=== PATIENT | female | born 1950 | race Caucasian/White ===

== ENCOUNTER 2017-06-22 12:02 | Emergency (ER) | payer MEDICARE, BC ==
[~2017-06-22] VITALS: Ht 167.6 cm; Wt 115.7 kg
[~2017-06-22 12:02] MED LIST: APIDRA100 UNIT/2 SUB-Q; ASPIRIN EC81 MG PO; B-121000 MC2 PO; CEFPODOXIME PR200 MG PO; CITALOPRAM HBR40 MG PO; DETROL LA2 MG PO; DETROL LA4 MG PO; DOXYCYCLINE HY100 MG PO; ECHINACEA500 MG PO; FAMOTIDINE40 MG PO; GABAPENTIN300 MG PO; HYDROCORTISO453.6 GM TOP; KEFLEX500 MG PO; LASIX20 MG PO; LEVEMIR100 UNIT/1 SUB-Q; LEVOTHROID137 MCG PO; LEVOTHROID150 MCG PO; LEVOTHYROXINE137 MCG PO; LIPITOR40 MG PO; LISINOPRIL10 MG PO; LISINOPRIL20 MG PO; MAGNESIUM400 MG PO; MYRBETRIQ50 MG PO; NORCO 5-325 TA1 EACH PO; NOVOLOG100 UNITS/ SUB-Q; OMEPRAZOLE40 MG PO; OXYTROL1 EACH TD; PEPCID40 MG PO; POTASSIUM CHLO10 ME1 PO; PREDNISONE20 MG PO; PRILOSEC40 MG PO; PROAIR HFA8.5 GM INH; PROMETHAZINE-COD5 ML PO; REGLAN10 MG PO; REGLAN5 MG PO; ROBITUSSIN NIG118 ML PO; SERTRALINE HCL100 MG PO; TESSALON PERLE100 MG PO; TOPROL XL100 MG PO; TRAMADOL-ACETA1 EACH PO; VANICREAM453 GM TOP; VICODIN 5-3001 EACH PO; VITAMIN C500 M1 PO; ZITHROMAX250 MG PO; ZOFRAN ODT8 MG PO
[2017-06-22] MEDS ORDERED: OMEPRAZOLE40 MG PO (12:18)
[2017-06-22] MEDS ORDERED: ARYMO ER15 MG PO (15:11)
== END 2017-06-22 15:20 | disposition home or self-care (01) ==
LOC: ED 12:02
DX: S70.02XA Contusion of left hip, initial encounter (principal); S80.212A Abrasion, left knee, initial encounter; M54.6 Pain in thoracic spine; M54.5 Low back pain; E11.9 Type 2 diabetes mellitus without complications; E03.9 Hypothyroidism, unspecified; I10 Essential (primary) hypertension; Z90.710 Acquired absence of both cervix and uterus; Z90.49 Acquired absence of other specified parts of digestive tract; Z88.2 Allergy status to sulfonamides; Z88.5 Allergy status to narcotic agent; Z79.4 Long term (current) use of insulin; Z79.899 Other long term (current) drug therapy; W01.0XXA Fall on same level from slipping, tripping and stumbling without subsequent striking against object, initial encounter
CPT/HCPCS: 72070; 72100; 73502; 96372; 99283; J2270

== ENCOUNTER 2017-08-06 08:39 | Inpatient (IN) | payer MEDICARE, BC ==
[~2017-08-06] VITALS: Ht 167.6 cm; Wt 111.1 kg
--- OUTSIDE RECORDS SUMMARY | ~2017-08-06 | XMS | Clinical Summary ---
Demographics + + + | Address | [address] [place] [address] | | | [place] [address] | + + + | Home Phone | | + + + | Preferred Language | Unknown | + + + | Marital Status | | + + + | Pentecostalism Affiliation | Unknown | + + + [...] [address] | | [place] | [place] [address] | +------+ + + + + + Care Team Providers + +------+ + | Care Parking Ramp Attendant Name | Role | Phone | + +------+ + PP | Unavailable | + +------+ + Source Comments KAR[facility]IK is [facility] both [facility] and [facility] InPatient.[facility] Allergies + + + + + + [...]
[~2017-08-06 08:39] MED LIST changes: +ARYMO ER15 MG PO
--- OUTSIDE RECORDS SUMMARY | 2017-08-06 10:06 | XMS | Clinical Summary ---
Demographics + + + | Address | [address] [place] [address] | | | [place] [address] | + + + | Home Phone | | + + + | Preferred Language | Unknown | + + + | Marital Status | | + + + | Hindu Affiliation | Unknown | + + + | Race | White | + + + | Ethnic Group | Not or | + + + Author + + + | Author | [facility] | + + + | Organization | [facility] | + + + | Address | Unknown | + + + | Phone | Unavailable | + + + Support +------+ + + + + + | Name | Relationship | Address | Phone | +------+ + + + + + ECON | [address] | | [place] | [place] [address] | +------+ + + + + + Care Team Providers + +------+ + | Care Oven Press Tender Name | Role | Phone | + +------+ + PP | Unavailable | + +------+ + Source Comments KARTHIK is fully live on both [facility] and [facility] InPatient.[facility] Allergies + + + + + + | Active Allergy | Reactions | Severity | Noted | Comments | | | | | Date | | + + + + + + | Codeine | | | 10/18/19 | | | | | | 00 | | + + + + + + | Sulfa (Sulfonamide | | | 10/18/19 | | | Antibiotics) | | | 00 | | + + + + + + Current Medications Not on file Active Problems Not on file Social History + +-------+ +--------+------+ | Tobacco Use | Types | Packs/Day | Years | Date | | | | | Used | | + +-------+ +--------+------+ | Never Assessed | | | | | + +-------+ +--------+------+ + + + | Sex Assigned at | Date Recorded | | | | + + + | Not on file | | + + + Plan of Treatment + + + + + | Health Maintenance | Due Date | Last Done | Comments | + + + + + | INFLUENZA VACCINE | | | | | (FLU SHOT) | 7 | | | + + + + + Results Not on filefrom Last 3 Months"
--- OUTSIDE RECORDS SUMMARY | 2017-08-06 10:06 | XMS | Clinical Summary ---
Demographics + + + | Address | [address] [place] [address] | | | [place] [address] | + + + | Home Phone | | + + + | Preferred Language | Unknown | + + + | Marital Status | | + + + | Jew Affiliation | Unknown | + + + [...] [address] | | [place] | [place] [address] | +------+ + + + + + Care Team Providers + +------+ + | Care Rn Medicare Name | Role | Phone | + +------+ + PP | Unavailable | + +------+ + Source Comments K[facility]IK is [facility] and [facility] In[facility] Allergies + + + + + + [...]
--- NOTE | 2017-08-06 14:25 | NUR ---
PT ASSESSMENT COMPLETE WHILE STILL IN ED. PT WILL BE MOVING TO MEDICAL FLOOR. ADMISSION COMPLETE.
--- NOTE | 2017-08-06 15:48 | NUR ---
REPORT TO MUNDO RICHARDSON
--- NOTE | 2017-08-06 16:30 | NUR ---
EXPLAINED SLIDING SCALE TO PATIENT, VERBALIZED UNDERSTANDING WITH CARB COUNT. UP TO BATHROM 1PERSON STBY ASSIST. STATES " I JUST DON'T FEEL WELL."
--- NOTE | 2017-08-06 18:00 | NUR ---
PATIENT DID NOT EAT ENOUGH CARBS FOR INSULIN. PATIENT STATES " I AM JUST NOT FEELING THAT HUNGRY TONIGHT". PATIENT USING IS, DOING WELL. IV FLUIDS INFUSING. DROPLET PERCAUTIONS INITIATED.
--- NOTE | 2017-08-06 19:45 | NUR ---
RECIEVED REPORT FROM DAY SHIFT NURSE. PATIENT RESTING IN BED. IVF INFUSING W/O DIFFICULTY. PATIENT DENIES NEEDS, CALL LIGHT IN REACH.
--- NOTE | 2017-08-06 20:46 | NUR ---
ASSISTED PATIENT TO BATHROOM WITH FWW. PATIENT VOIDED CLEAR YELLOW URINE. BACK TO BED. PATIENTS O2 WENT FROM 94-95% AT REST, TO 86-88% AFTER AMBULATING TO BATHROOM. STATES SHE DID GET MILDLY SOB. CONT PULSE OX IN PLACE. 2L O2 VIA NC IN PLACE. PATIENT ENCOURAGED TO USE INCENTIVE SPIROMETER, SHE WAS ABLE TO REACH 750ML. REFILLED WATER PITCHER. LUNG SOUNDS DIMINISHED, OCCASIONAL PRODUCTIVE COUGH EXPELLING THICK YELLOW SPUTUM. SPUTUM SAMPLE SENT TO LAB. BS ACTIVE. NO EDEMA, PALPABLE PEDAL PULSES. PATIENT HAS H/O NEUROPATHY IN BLE. DENIES PAIN. IVF INFUSING W/O DIFFICULTY. SCRATCH NOTED ON LLE FROM FALL BEFORE SHE WAS ADMITTED. PATIENT DENIES FURTHER NEEDS. CALL LIGHT IN REACH.
--- NOTE | 2017-08-06 22:22 | NUR ---
PATIENT UP TO BATHROOM WITH ASSIST. BACK TO BED. REFILLED WATER PITCHER. OBTAINED BLOOD SUGAR, ADMINISTERED INSULIN PER SEP. WILL NOTIFY CHARGE NURSE OF BLOOD SUGAR. CALL LIGHT IN REACH.
--- NOTE | 2017-08-06 22:30 | NUR ---
NOTIFIED OF BLOOD SUGAR. OBTAINED ORDER TO CHECK BLOOD SUGAR AT 0200.
--- NOTE | 2017-08-07 00:40 | NUR ---
ASSISTED PATIENT TO BATHROOM. VOIDED, BACK TO BED. IVF INFUSING W/O DIFFICULTY. PATIENT DENIES FURTHER NEEDS. CALL LIGHT IN REACH.
--- NOTE | 2017-08-07 00:57 | NUR ---
VITALS AND I&OS DONE AND CHARTED. HELPED PT TO THE BATHROOM AND BACK TO BED WITH HER WALKER. BEDSIDE TABLE AND CALL LIGHT WITHIN REACH.
--- NOTE | 2017-08-07 01:37 | NUR ---
CHANGED IVF BAG. TOILETING OFFERED. PATIENT DENIES NEEDS. CALL LIGHT IN REACH.
--- NOTE | 2017-08-07 02:45 | NUR ---
PATIENT SLEEPING. OBTAINED BLOOD SUGAR. ADMINISTERED CORRECT DOSAGE OF SLIDING SCALE INSULIN. LUNGS DIMINISHED. BREATHING IS EVEN AND UNLABORED. BS ACTIVE. CALL LIGHT IN REACH.
--- NOTE | 2017-08-07 04:20 | NUR ---
HELPED PT TO THE BATHROOM AND BACK TO BED WITH HER FWW. CHARTED HER URINE OUTPUT. SHE NEEDED NOTHING ELSE AT THIS TIME. BEDSIDE TABLE AND CALL LIGHT WITHIN REACH.
--- NOTE | 2017-08-07 06:12 | NUR ---
ASSISTED PATIENT TO BATHROOM. PATIENT VOIDED, BACK TO BED. DENIES NEEDS AT THIS TIME. CALL LIGHT IN REACH.
--- NOTE | 2017-08-07 07:47 | NUR ---
RECIEVED BEDSIDE REPORT FROM DEBRA VÁSQUEZ. PT AWAKE AND ALERT IN BED. ASSISTED PT TO BATHROOM, VOIDED 400ML. O2 MAINTAINED AT 92%. FLUIDS RUNNING. ALL BELONGINGS IN REACH.
--- NOTE | 2017-08-07 10:38 | NUR ---
GOT LUNCH ORDER FOR PT. SHE WAS SLEEPING WELL, WOKE UP TO GIVE LUNCH ORDER. DENIED PAIN, NO NEED TO VOID AT THIS TIME, PERSONAL BELONGINGS IN REACH.
--- NOTE | 2017-08-07 11:25 | NUR ---
PT UP TO THE CHAIR FOR LUNCH.
--- NOTE | 2017-08-07 11:38 | NUR ---
PT TO THE CHAIR. AND TOOK TO THE BR. FRESH ICE WATER. LINEN CHANGE.
--- NOTE | 2017-08-07 12:43 | NUR ---
ASSISTED PT BACK TO BED FROM BATHROOM. PT HAD BEEN IN CHAIR FOR LUNCH. VOIDING WELL, HAD ONE SMALL, HARD BM. O2 ON, 88% WHEN REATTACHED TO PULSE OX. IV RUNNING. PT COMFORTABLE, PERSONAL BELONGINGS AND CALL LIGHT IN REACH.
--- NOTE | 2017-08-07 15:15 | NUR ---
PT REFUSED SUPPOSITORY. STATED SHE HAD A LARGE BM YESTERDAY.
--- NOTE | 2017-08-07 17:20 | NUR ---
UPON ACCU CHECK FOR DINNER, PT BLOOD SUGAR WAS 66. RN IMMEDIATELY GAVE 8OZ JUICE, WHICH PT DRANK WITH NO ISSUES. PT STATED SHE "DIDN'T FEEL GOOD". WHEN ASKED, PT STATED SHE HAD A HEADACHE. PT WAS NOT CLAMMY, NOT SWEATY, BUT DID LOOK LIKE SHE WAS NOT FEELING WELL. PULSE 84, O2 93%, BP 148/82. PT STATED NO PAIN. DINNER WAS DELIVERED AND SET UP FOR PT. PT ATE CHICKEN, MASHED POTATOES, AND GRAVY. WILL RECHECK BLOOD SUGAR.
--- NOTE | 2017-08-07 17:27 | NUR ---
RECHECKED BLOOD SUGAR AFTER JUICE AND PART OF MEAL, CBG 88.
--- NOTE | 2017-08-07 17:31 | NUR ---
CALLED DR HAY REGARDING PT BLOOD SUGAR. DR HAY GAVE TELEPHONE ORDERS TO CONTINUE INSULIN AT 5 UNITS FOR EVERY 20 GM OF CARBS AND RECHECK BLOOD SUGAR AT BEDTIME. ORDER READ BACK AND VERIFIED.
--- NOTE | 2017-08-07 18:01 | NUR ---
GARY PT TO THE BR. FRESH ICE WATER.
--- NOTE | 2017-08-07 18:14 | NUR ---
PT HAD LOW BLOOD SUGAR (66) AT DINNER. AWARE. CONTINUE CARB COVERAGE AND RECHECK AT BEDTIME. PT STATED SHE DID NOT FEEL WELL, BUT WAS OTHERWISE ASYMPTOMATIC. FLUIDS DC. IV SALINE LOCKED. O2 WEANED TO 1L VIA NASAL CANULA. NO BM, ONE HARD STOOL. BM YESTERDAY.
--- NOTE | 2017-08-07 20:20 | NUR ---
PT IS COMPLAINING OF A CONTINUOUS COUGH, HACKING COUGH. PT REQUESTING "SOMETHING FOR MY COUGH, I CANT HANDLE THIS ANYMORE." CALLED DR HAY AND NOTIFIED HIM OF PT'S REQUEST, HE WILL PUT IN ORDERS.
--- NOTE | 2017-08-07 21:10 | NUR ---
PT UP TO BATHROOM TO VOID, STANDBY ASSIST WITH FWW, TOLERATED WELL. PT BACK IN BED. ALERT AND ORIENTED X4, PLEASENT DEMEANOR. GAVE ROBITUSSIN AND TESSLON PEARLS FOR PT'S COUGH. GAVE FRESH ICE WATER. NO FURTHER NEEDS. CALL LIGHT IN REACH.
--- NOTE | 2017-08-07 22:20 | NUR ---
pt up to bathroom, standby assist with fww. tolerated well. back in bed. no further needs.
--- NOTE | 2017-08-08 01:57 | NUR ---
PT APPEARS TO BE SLEEPING. EYES ARE CLOSED. LIGHTS AND TV OFF IN ROOM.
--- NOTE | 2017-08-08 03:30 | NUR ---
PT UP TO BATHROOM, STANDBY ASSIST WITH FWW, TOLERATED WELL. PT STEADY WHEN UP OUT OF BED, SLOW TO STAND. PT BACK IN BED. CALL LIGHT IN REACH. GAVE ROBITUSSIN FOR COUGH. NO FURTHER NEEDS.
--- NOTE | 2017-08-08 04:15 | NUR ---
PT UP TO BATHROOM AND THEN BACK TO BED. CALL LIGHT IN REACH.
--- NOTE | 2017-08-08 04:54 | NUR ---
PT UP SEVERAL TIMES TO THE BATHROOM TO VOID, VOIDING 300-500MLS AT A TIME. STANDBY ASSIST WITH FWW, NEEDS MINIMAL ASSISTANCE TO STAND AT BEDSIDE, ONCE STANDING PT IS STEADY ON FEET. ALERT AND ORIENTED X4. PLEASENT DEMEANOR. USES CALL LIGHT APPROPRIATLY. ROBITUSSIN AND TESSLON PERLES GIVEN FOR COUGH.
--- NOTE | 2017-08-08 07:14 | NUR ---
RECIEVED BEDSIDE REPORT FROM DEBRA VALERA. PT SLEEPING IN BED, BREATHING UNLABORED. O2 IN PLACE AT 1L. IV SL. BEDTIME CBG 206.
--- NOTE | 2017-08-08 08:00 | NUR ---
STUDENT NURSE IN ROOM TO SEE PATIENT.
--- NOTE | 2017-08-08 10:46 | NUR ---
PT IN CHAIR FOR BREAKFAST, ATE 100%. UP TO BATHROOM MULTIPLE TIMES, XL BOWEL MOVEMENT. VOIDING WELL. PT UP WITH PHYSICAL THERAPY.
--- NOTE | 2017-08-08 11:00 | NUR ---
PATIENT BACK TO BED BY PT. PATIENT WASHED HANDS AND FACE. ORAL CARE DONE. PATIENT WOULD LIKE TO SHOWER LATER THIS AFTERNOON. FRESH ICE WATER GIVEN. NO OTHER NEEDS AT THIS TIME. CALL BUTTON IN REACH.
--- NOTE | 2017-08-08 13:02 | NUR ---
STRATEGIC SOURCING SPECIALIST AYSHA, GOT PT UP AND WALKED IN ROOM/IN PLACE. PT WENT TO VOID. ENCOURAGED USE OF IS AND ACCUPELLA.
--- NOTE | 2017-08-08 14:00 | NUR ---
STUDENT NURSE IN ROOM TO TAKE PATIENTS VITALS.
--- NOTE | 2017-08-08 14:35 | NUR ---
Medications reconciled by pharmacist using pharmacy records and patient interview
--- NOTE | 2017-08-08 15:00 | NUR ---
PATIENT UP TO SHOWER WITH RN AND STUDENT NURSE IN TO ASSIST.
--- NOTE | 2017-08-08 15:05 | NUR ---
METAL FINISHER AYSHA AND THIS RN SHOWERED PT. PT TOLERATED SHOWER WELL. SKIN IS GROSSLY INTACT, INSULIN PUMP ATTACHMENT ON ABD. LINENS CHANGED. PT BACK IN BED, VOIDED PRIOR TO SHOWER. DENIES PAIN. ALL BELONGINGS IN REACH.
--- NOTE | 2017-08-08 16:09 | NUR ---
PATIENT RESTING IN BED WATCHING TV. CALL BUTTON IN REACH. FRESH ICE WATER GIVEN. NO OTHER NEEDS AT THIS TIME
--- NOTE | 2017-08-08 18:45 | NUR ---
PT UP TO CHAIR, UP AMBULATING IN ROOM THIS SHIFT, SLIGHT DESAT TO LOW 90'S. PT HAD SHOWER, TOLERATED WELL. VOIDING WELL, GOOD ORAL INTAKE. BLOOD SUGAR COVERED WITH CARB COUNT INSULIN AND SLIDING SCALE. TOLERATING ADA DIET WELL. PT EVAL.
--- NOTE | 2017-08-08 20:21 | NUR ---
RECIEVED REPORT FROM DAY SHIFT. PT UP TO BATHROOM AND WATCHING TV NOW. ON 1L O2 NC. FILLED WATER. RR WNL SL IN RIGHT ARM. NO OTHER NEEDS AT THIS TIME. CALL LIGHT WITHIN REACH.
--- NOTE | 2017-08-08 21:31 | NUR ---
pt up to bathroom to void. standby assist with fww, tolerated well. pt back in bed. no further needs. call light in reach.
--- NOTE | 2017-08-09 00:28 | NUR ---
PT A/O IN BED WATCHING TV. RR WNL. REFRESHED WATER. NO PAIN. NO OTHER NEEDS AT THIS TIME. CALL LIGHT WITHIN REACH.
--- NOTE | 2017-08-09 01:48 | NUR ---
PT APPEARS TO BE SLEEPING. O2 IN PLACE. CALL LIGHT WITHIN REACH. RR WNL.
--- NOTE | 2017-08-09 05:48 | NUR ---
ASSISTED PATIENT WITH WALKER TO BATHROOM BACK TO BED.
--- NOTE | 2017-08-09 06:11 | NUR ---
PT HAD UNEVENTFUL NIGHT. SLEPT WELL LAST NIGHT. REPORTS FEELING MUCH BETTER THAN WHEN SHE CAME IN. CONTINUES TO REQUIRE 1L VIA NC TO MAINTAIN SATS WNL. ALERT AND ORIENTED X4. AMBULATES WELL WITH FWW.
--- NOTE | 2017-08-09 07:27 | NUR ---
BEDSIDE REPORT. PT RESTING BED EYES CLOSED RESP. EVEN ON 1L OXYGEN N.C., NO DISTRESS NOTED. PT APPEARS TO BE SLEEPING
--- NOTE | 2017-08-09 07:53 | NUR ---
PATIENT RESTING IN BED. RN IN ROOM TO SEE PATIENT.
--- NOTE | 2017-08-09 08:20 | NUR ---
PATIENT SITTING UP IN CHAIR WITH FEET ELEVATED. PATIENT WASHED HANDS AND FACE. PATIENT REFUSED ORAL CARE AT THIS TIME. FRESH ICE WATER GIVEN. NO OTHER NEEDS AT THIS TIME.
--- NOTE | 2017-08-09 09:44 | NUR ---
PT ON ROOM AIR TRAIL AT THIS TIME. PT AT 90% AT REST, WAS UP TO BATHROOM ON RA DROPPED TO 85% OXYGEN SATURATION RECOVERED IN 2MIN TO 88-90% WITH DEEP BREATHING AND REST. RESPIRATORY THERAPY TO DO FORMAL QUALIFY FOR HOME OXYGEN.
--- NOTE | 2017-08-09 11:07 | NUR ---
PATIENT UP TO BATHROOM STAND BY ASSIST. ORAL CARE DONE. HANDS AND FACE WASHED. PATIENT BACK TO CHAIR. CALL BUTTON IN LAP. FRESH ICE WATER GIVEN. NO OTHER NEEDS AT THIS TIME.
--- NOTE | 2017-08-09 12:11 | NUR ---
PT FINISHED LUNCH 100%, ADMINISTERED INSULIN 16UNITS NOVOLOG AFTER REPORTING TO PT BLOOD GLUCOSE READING WAS 376. PT UP TO BATHROOM. SHE REPORTS SHE FEELS LIKE SHE IS READY TO GO HOME
[2017-08-09] MEDS ORDERED: LEVAQUIN750 MG PO (13:18)
--- NOTE | 2017-08-09 15:15 | NUR ---
PT EDUCATION PROVIDED ON ACTIVITY, SAFE USE OF OXYGEN AT HOME, NO OPEN FLAMES. EDUCATION PROVIDED ON MEDICATIONS, LAST DOSE NEXT DOSE. I.V. SITE REMOVED TIP INTACT WNL. PT SPOUSE AT BEDSIDE FOR ALL EDUCATION. FOLLOW UP APPOINTMENT CARD GIVEN FOR Aug.11. PT AND SPOUSE VERBALIZE UNDERSTANDING OF MEDICATION SIDE EFFECTS. PT HAS HOME OXYGEN TO SET UP OXYGEN AT HOME AND PORTABLE TANK FOR CAR RIDE HOME.
== END 2017-08-09 15:35 | disposition home or self-care (01) | DRG 193 ==
LOC: ED 08:39 → MS 14:23
PROVIDERS: ADMIT Internal Medicine
DX: J11.08 Influenza due to unidentified influenza virus with specified pneumonia (principal); J96.01 Acute respiratory failure with hypoxia; J90 Pleural effusion, not elsewhere classified; J13 Pneumonia due to Streptococcus pneumoniae; I10 Essential (primary) hypertension; E78.5 Hyperlipidemia, unspecified; K21.9 Gastro-esophageal reflux disease without esophagitis; R39.15 Urgency of urination; K31.84 Gastroparesis; G89.29 Other chronic pain; M54.2 Cervicalgia; E11.43 Type 2 diabetes mellitus with diabetic autonomic (poly)neuropathy; E03.9 Hypothyroidism, unspecified; Z79.4 Long term (current) use of insulin
CPT/HCPCS: 71046; 71260; 80053; 83605; 85025; 87070; 87077; 87186; 87205; 87502; 94640; 94667; 94668; 94760; 94761; 97116; 97162; J0456; J0696; J1650; J7050; J7120; Q9967

== ENCOUNTER 2018-01-03 11:09 | Emergency (ER) | payer MEDICARE, BC ==
[~2018-01-03] VITALS: Ht 167.6 cm; Wt 111.1 kg
[~2018-01-03 11:09] MED LIST changes: +LEVAQUIN750 MG PO
--- NOTE | 2018-01-05 17:05 | EKG ---
[facility] [address] [facility] [facility] [place] [address] Signed Normal sinus rhythm Anterolateral infarct , possibly acute ACUTE OK / STEMI Abnormal ECG When compared with ECG of 05-MAY-2016 10:23, Anterior infarct is now present Anterolateral infarct is now present ST elevation now present in Anterolateral leads T wave inversion now evident in Anterolateral leads Confirmed by DORY HAY MD ([id number]) on 01/05/2018 5:05:38 PM Electronically Signed By: DORY HAY MD 01/05/18 1705 PATIENT NAME: NILTON GAVIN Electrocardiogram DATE OF : 50 PHYSICIAN: DORY HAY MD REPORT #: [id number] REPORT IS CONFIDENTIAL AND NOT TO BE RELEASED WITHOUT AUTHORIZATION
== END 2018-01-03 12:11 | disposition short-term general hospital (02) ==
LOC: ED 11:09
DX: I21.3 ST elevation (STEMI) myocardial infarction of unspecified site (principal); E11.9 Type 2 diabetes mellitus without complications; Z88.2 Allergy status to sulfonamides; Z88.5 Allergy status to narcotic agent; Z79.899 Other long term (current) drug therapy; Z79.4 Long term (current) use of insulin
CPT/HCPCS: 71045; 80053; 84484; 85025; 93005; 93010; 96374; 99285; J1644

== ENCOUNTER 2018-07-13 02:24 | Observation (INO) | payer MEDICARE, BC ==
[~2018-07-13] VITALS: Ht 170.2 cm; Wt 109.1 kg
[~2018-07-13 02:24] MED LIST changes: +ACETAZOLAMIDE250 MG PO; +ADMELOG100 UNIT/1 SUB-Q; +ATIVAN0.5 MG; +ATIVAN0.5 MG PO; +BUMETANIDE1 MG PO; -CITALOPRAM HBR40 MG PO; +CLOPIDOGREL75 MG PO; +COLACE100 MG PO; +D-20002000 UNIT PO; +ELIQUIS2.5 MG PO; +IPRAT-ALBUT 0.5-3 ML INH; +IRON240 MG PO; +KLOR-CON 1010 MEQ PO; +LANTUS100 UNITS/ SUB-Q; +LIDODERM1 EACH TOP; +LIQUITEARS15 ML OU; +MAGNESIUM400 M1 PO; +MAPAP325 MG PO; +METOPROLOL SUCC25 MG PO; +MIRALAX17 GM PO; +MORPHINE S100 MG/5 M PO; +NYSTATIN1 EAC9 TOP; +OCEAN104 ML NAS; +OMEPRAZOLE20 MG PO; +ONDANSETRON HCL4 MG PO; +PULMICORT0.5 MG/2 M INH; +SENNA8.6 MG PO; +TORSEMIDE20 MG PO; +VITAMIN C250 MG PO; +ZESTRIL2.5 MG PO; +ZOLOFT25 MG PO
--- OUTSIDE RECORDS SUMMARY | 2018-07-13 02:28 | XMS ---
PreManage Notification: NILTON GAVIN [employer] Internship Events No recent Security Events currently on file CRITERIA MET - 6 ED Visits in 6 Months [facility] - 2 Visits in 30 Days CARE PROVIDERS [facility] Internal Medicine 06/26/2018-Kathleen WATSON PHONE: [phone] Jhony Salgado MD Primary Care Current PHONE: Unknown orsandy Case or Aws Developer Current PHONE: Unknown Burak SALGADO Current PHONE: Unknown José Miguel has no Care Guidelines for this patient. Care History Medical/Surgical 06/26/2018 [facility] - Patient is currently established with [facility]. If patient is seen in the ED during business hours. Please contact CHWs at [facility]. Care Recommendation: This patient has had 5 or more Emergency Department visits in the last 12 months.\T\nbsp; Patient requires education on the scope and purpose of the ED as an acute care provider not a Primary Care Provider and should not be utilized for chronic conditions.\T\nbsp; These are guidelines and the provider should exercise clinical judgment when providing care. E.D. VISIT COUNT (12 MO.) 5 [facility] 4 [facility] TOTAL 9 NOTE: Visits indicate total known visits. ED/UCC VISIT TRACKING (12 MO.) 07/13/2018 02:24 [facility] [place] TYPE: Emergency COMPLAINT: - LOW BLOOD PRESSURE 06/24/2018 12:53 [facility] [place] TYPE: Emergency COMPLAINT: - SO[facility] DIAGNOSES: - Acute posthemorrhagic anemia - Hyperkalemia - Epistaxis - Acute kidney failure, unspecified - Abnormal levels of other serum enzymes - nose bleed - Epistaxis 04/03[facility]2018 [facility] DIAGNOSES: - Shortness of Breath - Fluid overload, unspecified - Chest Pain - Acute systolic (congestive) heart failure - Pleural effusion, not elsewhere classified 02/08/2018 [facility] DIAGNOSES: - Hyperglycemia, unspecified - Presence of coronary angioplasty implant and graft - Palpitations - Chest Pain - Unspecified systolic (congestive) heart failure - Atherosclerotic heart disease of [place] coronary artery without angina pectoris - Chronic atrial fibrillation - Anemia, unspecified - Dyspnea, unspecified - Pleural effusion, not elsewhere classified 01/19/2018 22[facility] DIAGNOSES: - assistant terminal manager (current) use of insulin - Acute and chronic respiratory failure with hypoxia - Left ventricular failure, unspecified - Abnormal levels of other serum enzymes - Shortness of Breath - Heart failure, unspecified - Hypothyroidism, unspecified - Other specified diabetes mellitus with unspecified complications 01/03/2018 12[facility] DIAGNOSES: - manager cath lab 01/03/2018 11:10 [facility] [place] TYPE: Emergency COMPLAINT: - CHEST PAIN DIAGNOSES: - Precordial pain - assistant terminal manager (current) use of insulin - Allergy status to sulfonamides status - Other long term care pharmacist (current) drug therapy - Type 2 diabetes mellitus without complications - Allergy status to narcotic agent status - ST elevation (STEMI) myocardial infarction of unspecified site 08/06/2017 08:40 [facility] [place] TYPE: Emergency COMPLAINT: - CHEST CONGESTION/COUGH/SORE THROAT INPATIENT VISIT TRACKING (12 MO.) 06/27/2018 11:04 [facility] [place] TYPE: Medical Surgical COMPLAINT: - CONGESTIVE HEART FAILURE DIAGNOSES: - Presence of cardiac pacemaker - Hyperlipidemia, unspecified - Dependence on supplemental oxygen - Unspecified mood [affective] disorder - Presence of cardiac pacemaker - assistant terminal manager (current) use of antithrombotics/antiplatelets - assistant terminal manager (current) use of inhaled steroids - Type 2 diabetes mellitus with hyperglycemia - Dependence on supplemental oxygen - Old myocardial infarction - Type 2 diabetes mellitus with diabetic autonomic (poly)neuropathy - Type 2 diabetes mellitus with diabetic chronic kidney disease - Other long term care pharmacist (current) drug therapy - Atherosclerotic heart disease of [place] coronary artery without angina pectoris - Acute and chronic respiratory failure with hypoxia - Weakness - Type 2 diabetes mellitus with diabetic autonomic (poly)neuropathy - Weakness - Type 2 diabetes mellitus with hyperglycemia - Unspecified mood [affective] disorder - Gastroparesis - Do not resuscitate - Anxiety disorder, unspecified - Ischemic cardiomyopathy - Patient's other noncompliance with medication regimen - Type 2 diabetes mellitus with unspecified diabetic retinopathy without macular edema - Type 2 diabetes mellitus with unspecified diabetic retinopathy without macular edema - detention (current) use of inhaled steroids - detention (current) use of insulin - Old myocardial infarction - Carrier of other specified bacterial diseases - Unspecified asthma, uncomplicated - Do not resuscitate - detention (current) use of insulin - Alkalosis - Chronic kidney disease, unspecified - Pain, unspecified - Acute and chronic respiratory failure with hypoxia - Alkalosis - Paroxysmal atrial fibrillation - Presence of coronary angioplasty implant and graft - Other fci (current) drug therapy - Paroxysmal atrial fibrillation - Allergy status to sulfonamides status - Pain, unspecified - Ischemic cardiomyopathy - Chronic kidney disease, unspecified - Unspecified asthma, uncomplicated - Hyperlipidemia, unspecified - Carrier of other specified bacterial diseases - Patient's other noncompliance with medication regimen - detention (current) use of antithrombotics/antiplatelets - Presence of coronary angioplasty implant and graft - Allergy status to narcotic agent status - Allergy status to narcotic agent status - Atherosclerotic heart disease of [place] coronary artery without angina pectoris - Anxiety disorder, unspecified - Type 2 diabetes mellitus with diabetic chronic kidney disease - Allergy status to sulfonamides status - Gastroparesis - Acute on chronic systolic (congestive) heart failure [facility]2018 [facility] DIAGNOSES: - Hyperkalemia - Acute posthemorrhagic anemia - Epistaxis - Acute cystitis with hematuria - assistant terminal manager (current) use of insulin - Acute respiratory failure with hypoxia - Type 2 diabetes mellitus with unspecified complications - Abnormal levels of other serum enzymes - Chronic systolic (congestive) heart failure - Atherosclerotic heart disease of [place] coronary artery without angina pectoris - Encephalopathy, unspecified - Acute kidney failure, unspecified 02/08/2018 12:04 [facility] TYPE: Medical Surgical DIAGNOSES: - Chronic atrial fibrillation - Encounter for palliative care - Atherosclerotic heart disease of [place] coronary artery without angina pectoris - Unspecified systolic (congestive) heart failure - Type 2 diabetes mellitus with hyperglycemia - Resistance to multiple antibiotics - Hypothyroidism, unspecified - assistant terminal manager (current) use of insulin - Presence of coronary angioplasty implant and graft - Shortness of breath - Major depressive disorder, single episode, unspecified - Other chronic pain - Nausea - Bacteremia - Unspecified Escherichia coli [E. coli] as the cause of diseases classified elsewhere - Anemia, unspecified - Hyperglycemia, unspecified - Dyspnea, unspecified - Urinary tract infection, site not specified - Lumbago with sciatica, unspecified side - Pleural effusion, not elsewhere classified - Orthostatic hypotension - Paroxysmal atrial fibrillation - Viral conjunctivitis, unspecified - Anxiety disorder, unspecified 01/19/2018 22:19 [facility] TYPE: Medical Surgical DIAGNOSES: - Atherosclerotic heart disease of [place] coronary artery with unspecified angina pectoris - Heart failure, unspecified - Infection and inflammatory reaction due to indwelling urethral catheter, initial encounter - Left ventricular failure, unspecified - Infection and inflammatory reaction due to indwelling urethral catheter, initial encounter ([facility]) - Abnormal levels of other serum enzymes - Acute and chronic respiratory failure with hypoxia - Urinary tract infection, site not specified - Other specified diabetes mellitus with unspecified complications - assistant terminal manager (current) use of insulin - Hypothyroidism, unspecified [facility] DIAGNOSES: - Type 2 diabetes mellitus with unspecified complications - detention (current) use of insulin - Acute kidney failure, unspecified - Fluid overload, unspecified - Cardiogenic shock - S/P CARDIAC STENTS AFTER STEMI - Pericardial effusion (noninflammatory) - CARDIOGENIC SHOCK - Hypo-osmolality and hyponatremia - Paroxysmal atrial fibrillation - Pneumonitis due to inhalation of food and vomit - ST elevation (STEMI) myocardial infarction involving left main coronary artery 01/03/2018 12:40 [facility] DIAGNOSES: - ST elevation (STEMI) myocardial infarction involving left anterior descending coronary artery - manager cath lab - Type 1 diabetes mellitus with hyperglycemia - Atherosclerotic heart disease of [place] coronary artery with unspecified angina pectoris - Type 1 diabetes mellitus with other specified complication - Acute kidney failure with tubular necrosis [email or web address]
--- NOTE | 2018-07-13 08:30 | NUR ---
PT RECEIVED FROM ED, TRANSFERED TO HOSPITAL BED. PT ON 2L NC, LUNG SOUNDS CLEAR, O2 SATS 96%. PT VERY LETHARGIC, AROUSABLE TO VOICE AND GENTLE SHAKE BUT QUICKLY FALLS ASLEEP, ORIENTED TO ALL BUT DATE. PT WITH EDEMA TO BLE, SKIN COOL, PULSES FAINT, PT REPORT OF NUMBNESS, HX OF NEUROPATHY. HYPOTENISIVE, ON ARRIVAL BP, 85/61, RECHECKED AFTER 10 MINUTES BP 98/58, MD NOTIFIED. PT WITH RED RASH TO SKIN FOLDS ALONG PANIS AND GROIN, SKIN CLEANSED AND DRIED. BLANCHABLE REDNESS TO BUTTOCK. IV FLUIDS STARTED NS AT 100 ML/HR. BED ALARM PLACED, CALL LIGHT WITHIN REACH.
--- NOTE | 2018-07-13 09:24 | NUR ---
CALLED AND SPOKE WITH JOSE R RN HOME HEALTH NURSE FROM [facility]. SHE STATES SHE ADMITTED PATIENT. SHE STATES PATIENTS AT FIRST DENIED SERVICES, BUT SHE PERSISTED TO SPEAK WITH PATIENT. HE AGREED TO LET HER COME TO THE HOUSE, PATIENT WAS VERY RECEPTIVE TO HELP. SHE STATES HE DID NOT ENGAGE WITH THEM AFTER THAT POINT. SHE STATES PATIENT HAD ANOTHER RN VISIT TUESDAY AND SAW PT AND BATHE AIDE YESTERDAY. SHE STATES THEY FEEL THIS PATIENT WILL PROBABLY BE UNSUCCESSFUL AT HOME SHE DOES NOT HAVE MOTIVATION TO GET UP AND DO ON HER OWN, AND IS NOT HELPING HER. SHE STATES PATIENT WOULD BE BETTER SUITED FOR ASSISTED LIVING SITUATION IN THEIR OPINION. SPOKE WITH LEOPOLDO BURR FROM PCP OFFICE, SHE WILL WORK WITH PATIENT AND FAMILY IN HOPES OF CAREGIVERS OR ASSISTED LIVING. CALLED [facility], PATIENTS RUBBER WORKER IS ROSALBA SERNA AND SHE IS OUT OF THE OFFICE. LEFT A MESSAGE FOR DAYWORKER TO RETURN CALL.
--- NOTE | 2018-07-13 10:02 | NUR ---
PT RESTING IN BED, CONTINUES TO BE LETHARGIC, SPOUSE AT BEDSIDE. PT ASSISTED WITH TAKING MORNING MEDICATION, ABLE TO SWALLOW WITHOUT DIFFICULTY. PT ASSISTED WITH ORDERING LUNCH. PT DENIES OTHER NEEDS AT THIS TIME.
--- NOTE | 2018-07-13 10:25 | NUR ---
MED REC COMPLETE
--- NOTE | 2018-07-13 12:15 | NUR ---
PT SET UP WITH LUNCH. CLAM DREDGER TO BEDSIDE FOR NEB. JAVASCRIPT PROGRAMMER AT BEDSIDE, UNABLE TO DRAW LABS, LAB DRAWN FROM IV SITE. PT GIVEN 8 UNITS HUMALOG FOR BLOOD GLUCOSE 288. PT DENIES OTHER NEEDS AT THIS TIME.
--- NOTE | 2018-07-13 13:27 | NUR ---
GUADARRAMA CATH PLACED PER ORDER. 100 ML OF CONCENTRATED URINE INITIALLY, NOTIFIED, NO NEW ORDERS AT THIS TIME.
--- NOTE | 2018-07-13 14:57 | NUR ---
PT WITH 20 ML OF URINE SINCE CATH PLACED, NOTIFIED, NO NEW ORDERS.
--- NOTE | 2018-07-13 15:18 | EKG ---
[facility] [address] [facility] [place] [address] Signed Normal sinus rhythm Low voltage QRS Nonspecific T wave abnormality Abnormal ECG When compared with ECG of 24-JUN-2018 13:11, Nonspecific T wave abnormality now evident in Anterior leads Confirmed by FELIPE ADLER DO ([id number]) on 07/13/2018 3:18:30 PM Electronically Signed By: FELIPE ADLER DO 07/13/18 1518 PATIENT NAME: NILTON GAVIN MARIO Electrocardiogram DATE OF : 50 PHYSICIAN: FELIPE ADLER DO REPORT #: [id number] REPORT IS CONFIDENTIAL AND NOT TO BE RELEASED WITHOUT AUTHORIZATION
--- NOTE | 2018-07-13 15:30 | NUR ---
PT RESTING IN BED. MANAGER MARKETING COMMUNICATIONS TO BEDSIDE FOR EKG. PT CONTINUES TO BE LETHARGIC, AROUSABLE TO VOICE AND GENTLE SHAKE. IV FLUIDS INFUSING AT 200 ML/HR. LUNG SOUNDS CLEAR WITH DIMINISHED BASES, PT ON 2L NC, CONTINUOUS PULSE OX IN PLACE. PT WITH 1+ EDEMA TO BLE, UNCHANGED FROM PRIOR ASSESSMENT. GUADARRAMA CATH IN PLACE DRAINING CONCENTRATED CLOUDY URINE. PT DENIES OTHER NEEDS AT THIS TIME.
--- NOTE | 2018-07-13 17:33 | NUR ---
PT SITTING IN BED EATING DINNER. PT GIVEN 8 UNITS SS INSULIN FOR BLOOD GLUCOSE 294. PT DENIES OTHER NEEDS AT THIS TIME. URINE OUTPUT CONTINUES TO BE LOW.
--- NOTE | 2018-07-13 17:45 | NUR ---
PT IS NEEDING MORE HELP THAN SHE HAS AT HOME AND FAMILY IS WORKING WITH [facility] TO GET HER FINANCIAL ASSISTANCE FOR ASSISTED LIVING FACILITY
--- NOTE | 2018-07-13 18:14 | NUR ---
PT RECEIVED FROM ED THIS AM FOR ACUTE RENAL FAILURE. PT ON 2L NC, WEARS OXYGEN CHRONICALLY. PT LETHARGIC, DISORIENTED TO DATE, AROUSABLE TO VOICE. IV FLUIDS INFUSING LR AT 200 ML/HR. GUADARRAMA CATH PLACED, LOW URINE OUTPUT, MD AWARE. PT TOLERATING ADA DIET, BLOOD GLUCOSE HAS BEEN HIGH, 294 AT DINNER, GIVEN 8 UNITS SS HUMALOG. PT 3PA MAX ASSIST IN ED, HAS NOT BEEN OOB SINCE ARRIVING TO FLOOR. BLOOD CULTURES PENDING. SKIN WITH RASH TO PANIS AND GROIN, NIO NYSTATIN.
--- NOTE | 2018-07-13 18:25 | NUR ---
PT CONTINUES TO HAVE LOW URINE OUTPUT, 75 ML FOR PAST 4 HOURS, MD NOTIFIED, NO NEW ORDERS.
--- NOTE | 2018-07-13 19:30 | NUR ---
RECEIVED REPORT FROM DEBRA MARQUES. pt EASILY AROUSED, RESTING WITH EYES CLOSED. WHITEBOARD UPDATED.
--- NOTE | 2018-07-13 20:58 | NUR ---
VITALS DONE AND CHARTED.
--- NOTE | 2018-07-13 21:24 | NUR ---
ASSESSMENT AND MEDICATIONS DUE. ASSESSMENT DONE. pt ORIENTED TO SELF AND SITUATION. GUADARRAMA CARE DONE. MD IN ROOM DURING ASSESSMENT, AWARE OF LOW URINE OUTPUT. MEDICATIONS GIVEN (SEE MAR). pt ABLE TO SWALLOW PILL WITHOUT ISSUE. WATER AND TISSUES WITHIN REACH. CALL LIGHT WITHIN REACH. O2 OF 94% ON 2 L VIA NC. NO REQUESTS AT THIS TIME.
--- NOTE | 2018-07-13 23:45 | NUR ---
ROUNDED ON pt. RESTING WITH EYES CLOSED. RESPIRATIONS REGULAR, RATE = 20. CALL LIGHT WITHIN REACH. BED ALARM ON. CURTAIN OPEN TO THE NURSES STATION.
--- NOTE | 2018-07-14 01:28 | NUR ---
VITALS AND I&OS DONE AND CHARTED. INFORMED RN THOMAS OF LOW B\P AND OUTPUT. BEDSIDE TABLE AND CALL LIGHT IN REACH.
--- NOTE | 2018-07-14 01:45 | NUR ---
UPDATED MD ON LOW URINE OUTPUT. NO NEW ORDERS AT THIS TIME.
--- NOTE | 2018-07-14 01:55 | NUR ---
ASSESSMENT DONE. CRACKLES HEARD IN LEFT LUNG UPPER AND LOWER. EDEMA IN LEGS UP TO THIGH, PITTING. MD AWARE OF LOW URINE OUTPUT. pt RESTING WITH EYES CLOSED, ORIENTED TO SITUATION, PERSON, AND PLACE. CALL LIGHT WITHIN REACH. BED ALARM ON.
--- NOTE | 2018-07-14 03:07 | NUR ---
ROUNDED ON pt. EDUCATED ON USE OF CALL LIGHT. BED ALARM ON. CALL LIGHT WITHIN REACH. NO REQUESTS AT THIS TIME.
--- NOTE | 2018-07-14 05:04 | NUR ---
pt RESTLESS DURING SHIFT. ORIENTED TO PERSON AND PLACE, DISORIENTED TO DATE. CONFUSED AT TIMES. GUADARRAMA, OUTPUT LOW, AWARE. LR AT 125 MLS/HR. CPOX. 2 L VIA NC, CHRONIC. TOLERATING ADA DIET. ACCU CHECKS. HAS NOT BEEN OOB. SKIN RED IN PANNUS AND GROIN, NYSTATIN APPLIED. USES CALL LIGHT APPROPRIATELY.
--- NOTE | 2018-07-14 05:35 | NUR ---
VITALS AND I&OS DONE AND CHARTED. FRESH ICE WATER GIVEN. BEDSIDE TABLE AND CALL LIGHT IN REACH.
--- NOTE | 2018-07-14 06:35 | NUR ---
ASSESSMENT DONE, MEDICATIONS ADMINISTERED (SEE MAR). pt COMPLAINED "I CAN'T BREATH". REASSURED WITH THERAPEUTIC COMMUNICATION. O2 SAT 96%. SAT pt UPRIGHT IN BED AND ADJUSTED POSITION. pt REPORTED BEING ABLE TO BREATH "BETTER". ENCOURAGED DEEP BREATHING AND COUGHING WHICH CLEARED CRACKLES IN LEFT SIDE. EDEMA IN BLE. SWALLOWED PILL WITHOUT ISSUE. CALL LIGHT WITHIN REACH. CURTAIN OPEN TO NURSES STATION. BED ALARM ON.
--- NOTE | 2018-07-14 07:05 | NUR ---
RT NOTIFIED THAT pt WOULD LIKE BREATHING TREATMENT.
--- NOTE | 2018-07-14 07:37 | NUR ---
RECIEVED BEDSIDE REPORT FROM DEBRA GUZMAN. PT AWAKE IN BED, WHIMPERING AND PICKING AT PULSE OX SENSOR AND BLANKETS. PT UNABLE TO STATE WHY SHE IS WHIPERING.
--- NOTE | 2018-07-14 09:39 | NUR ---
CARE CONFERENCE SPOKE WITH PATIENT, AND HER DAUGHTER CHASIDY. DISCUSSED THAT PATIENT CONTINUES TO HAVE ISSUES THAT WOULD BE MORE STABLE WITH HER BEING IN AN ASSISTED LIVING SITUATION. DAUGHTER AGREES THAT IS NOT ABLE TO HELP PATIENT APPROPRIATELY. IS IN ROOM, HE DID NOT ENGAGE IN COVERSATION MUCH. DISCUSSED THAT [employer] IS IN NEED OF MORE FINANCIAL PAPERWORK TO PROCESS HER REQUEST FOR HELP WITH FACILITY EXPENSES. DAUGHTER STATES SHE WILL GO UP TO THEIR OFFICE, DISCUSSED WITH THEM THAT HOME HEALTH WILL CONTINUE WITH HER AFTER SHE IS DISCHARGED. ALSO THAT I WILL HAVE CHW REFERRAL TO HELP THEM WITH ALL SHE NEEDS. NO FURTHER QUESTIONS.
--- NOTE | 2018-07-14 09:57 | NUR ---
PATIENT RESTING IN BED. PATIENT COMPLAINS ABOUT STOMACH ACHE AND NAUSEA. RN NOTIFIED. VITAL SIGNS AND I&O DONE. CALL LIGHT WITHIN REACH. NO OTHER NEEDS AT THIS TIME
--- NOTE | 2018-07-14 11:01 | NUR ---
PATIENT RESTING IN BED. PATIENT REFUSED BEDBATH TODAY. CALL LIGHT WITHIN REACH. NO OTHER NEEDS AT THIS TIME
--- NOTE | 2018-07-14 12:30 | NUR ---
PT LAYING IN BED, O2N/C IN USE. SHE APPEARED TO BE EMOTIONAL, MOTIONED ME INTO HER RM. SHE HELD OUT HER HAND AND REQUESTED PRAYER. PT MENTIONED THAT TODAY IS A TOUGH DAY. HAD PRAYER, STAYED FOR A MOMENT WITH PT, WILL FOLLOW NEEDED
--- NOTE | 2018-07-14 14:02 | NUR ---
PATIENT IN BED WATCHING TV. VITAL SIGNS AND I&O DONE. CALL LIGHT WITHIN REACH. NO OTHER NEEDS AT THIS TIME
--- NOTE | 2018-07-14 14:40 | NUR ---
PT WAS YELLING FOR "NURSE, NURSE". CASE MANAGEMENT AND RN RESPONDED. PT'S CALL LIGHT WAS NOT WORKING. RN FOUND THAT THE CALL LIGHT HAD BECAME UNPLUGGED DURING PHYSICAL THERAPY. REPLUGED AND TESTED CALL LIGHT, IT WORKS. PT IS LESS WHIMPERY AFTER LUNCH.
--- NOTE | 2018-07-14 14:54 | NUR ---
PATIENT CALLS TO BRUSH HER TEETH. PATIENT IN BED. PATIENT BRUSH HER TEETH. ONE PERSON ASSISTING. CALL LIGHT WITHIN REACH. NO OTHER NEEDS AT THIS TIME.
--- NOTE | 2018-07-14 18:10 | NUR ---
PATIENT RESTING IN BED. VITAL SIGNS AND I&O DONE. CALL LIGHT WITHIN REACH. NO OTHER NEEDS AT THIS TIME
--- NOTE | 2018-07-14 19:20 | NUR ---
RECEIVED REPORT FROM DEBRA CONLEY. pt LAYING IN BED, ALERT AND AWAKE. NO REQUESTS AT THIS TIME. WHITEBOARD UPDATED. CALL LIGHT WITHIN REACH.
--- NOTE | 2018-07-14 21:38 | NUR ---
ASSESSMENT AND MEDICATIONS DUE. ASSESSMENT DONE. PERICARE DONE. pt REPOSITIONED. RT IN ROOM, 02 PROBE POSITIONED ON FOOT, O2 SAT 95% ON 2L NC. GUADARRAMA CARE DONE. NYSTATIN APPLIED. MEDICATIONS GIVEN (SEE MAR). CALL LIGHT AND POSSESSIONS WITHIN REACH. NO FURTHER REQUESTS AT THIS TIME.
--- NOTE | 2018-07-14 22:05 | EKG ---
[facility] [address] [place], [place] [address] Signed Normal sinus rhythm Cannot rule out Anterior infarct , age undetermined Abnormal ECG When compared with ECG of 13-JUL-2018 02:57, No significant change was found Confirmed by FELIPE ADLER DO ([id number]) on 07/14/2018 10:05:24 PM Electronically Signed By: FELIPE ADLER DO 07/14/18 2205 PATIENT NAME: NILTON GAVIN MARIO Electrocardiogram DATE OF : 50 PHYSICIAN: EFLIPE ADLER DO REPORT #: [id number] REPORT IS CONFIDENTIAL AND NOT TO BE RELEASED WITHOUT AUTHORIZATION
--- NOTE | 2018-07-14 22:49 | NUR ---
ROUNDED ON pt. NO REQUESTS OR COMPLAINTS AT THIS TIME. CALL LIGHT WITHIN REACH.
--- NOTE | 2018-07-15 00:12 | NUR ---
ROUNDED ON pt. DIMMED LIGHTS FOR COMFORT. CALL LIGHT WITHIN REACH.
--- NOTE | 2018-07-15 04:12 | NUR ---
pt MOANING. pt DROPPED NURSE CALL BUTTON, RETRIEVED FOR pt. ASSESSMENT DONE. pt REPORTED FEELING UNWELL AND WAS NOT ABLE TO SPECIFY GREATER DETAIL. REQUESTED A DIET SODA TO "MAKE MY STOMACH FEEL BETTER". PROVIDED. RT IN ROOM FOR BREATHING TREATMENT. CALL LIGHT WITHIN REACH.
--- NOTE | 2018-07-15 05:17 | NUR ---
pt RESTED MOST OF SHIFT. ORIENTED X4. GUADARRAMA, OUTPUT LOW. IV SL, ABX. CPOX. 2 L VIA NC, CHRONIC. TOLERATING ADA DIET. ACCU CHECKS. HAS NOT BEEN OOB. SKIN RED IN PANNUS AND GROIN, NYSTATIN IN ROOM. USES CALL LIGHT APPROPRIATELY.
--- NOTE | 2018-07-15 06:13 | NUR ---
Pt pulled IV line out, from left forearm. iv tip intact. bruised are noted where iv site was. Pt was also insontinent of large amount of bm. cleansed, red excoriated asia area noted. cleansed, barrier cream applied. clean attends in place. repositioned in bed, cooperative, f/c patent
--- NOTE | 2018-07-15 07:40 | NUR ---
RECIEVED BEDSIDE REPORT FROM DEBRA GUZMAN. WHEN WALKING INTO THE ROOM, DEBRA MUIR WAS AT BEDSIDE JUVENAL PRESSURE TO AN IV SITE THAT WAS BLEEDING. THERE WAS A LARGE PUDDLE OF BLOOD ON THE SHEET, GOWN, AND CHUX. RNS CONTINUED TO APPLY PRESSURE. ONCE BLEEDING WAS CONTROLLED, CHANGED SHEET AND GOWN. RN ASKED DEBRA THOMPSON APPRAISER OIL AND WATER TO START IV. PT AWAKE AND ALERT THIS AM. NO COMPLAINTS OF STOMACH PAIN AT THIS TIME.
--- NOTE | 2018-07-15 08:19 | NUR ---
PATIENT IN BED WATCHING TV. RN DONNA IN ROOM. CALL LIGHT IN REACH. NO FURTHER NEEDS AT THIS TIME.
--- NOTE | 2018-07-15 09:44 | NUR ---
PATIENT IN BED WATCHING TV. ORAL CARE DONE. CALL LIGHT IN REACH. NO FURTHER NEEDS AT THIS TIME.
--- NOTE | 2018-07-15 10:12 | NUR ---
PT'S SPOUSE CAME OUT TO NURSES STATION ASKING FOR AN UPDATE. UPDATED SPOUSE ON NEW IV, NAUSEA, AND OVERALL IMPROVEMENT IN MENTATION.
--- NOTE | 2018-07-15 13:57 | NUR ---
PATIENT IN BED RESTING. FRESH WATER GIVEN. CALL LIGHT IN REACH. NO FURTHER NEEDS AT THIS TIME.
--- NOTE | 2018-07-15 16:47 | NUR ---
PATIENT GIVEN BEDBATH BY THIS BED SETTER AND JEANA GARAY. LINENS CHNGED. NEW DEPENDS AND GOWN. DARREN CARE AND CATH CARE DONE. PATIENT HOYERED TO CHAIR. CALL LIGHT IN REACH. NO FURTHER NEEDS AT THIS TIME.
--- NOTE | 2018-07-15 18:36 | NUR ---
PATIENT HOYERED BACK TO BED FROM CHAIR. CALL LIGHT IN REACH. NO FURTHER NEEDS AT THIS TIME.
--- NOTE | 2018-07-15 18:37 | NUR ---
PT WORKED WITH PHYSICAL THERAPY INTO CHAIR PRIOR TO LUNCH. AFTER DINNER, PT WAS PLACED BACK IN BED. PT PULLED IV OUT OF THUMB THAT WAS PLACED THIS MORNING. DR ADLER CALLED AND ADVISED TO ATTEMPT AN IV, BUT IF UNABLE IT IS OK. PT TOLERATED CHAIR WELL. PT REPORTED LESS NAUSEA THIS SHIFT. PT MORE AWAKE AND ALERT.
--- NOTE | 2018-07-15 19:00 | NUR ---
SHIFT REPORT RECEIVED. PATIENT RESTING IN BED WATCHING TV. DENIES NEEDS. O2 SAT 96% ON 2L NC. PATIENT DENIES NEEDS. CALL LIGHT IN REACH.
--- NOTE | 2018-07-15 21:45 | NUR ---
PATIENT SLEEPING SOUNDLY, WOKE TO VERBAL STIMILI. PATIENT ORIENTED TO ALL EXCEPT THE DATE. SHE IS DROSWEY AND REPORTING BACK PAIN. REPOSITIONED PATIENT, DARREN CARE AND NYSTATIN APPLIED. TURNED TO LEFT SIDE. PRN TYLENOL PROVIDED. GUADARRAMA EMPTIED, VS DONE. SCHEDULED MEDS PROVIDED. PATIENT ABLE TO SWALLOW WITHOUT ISSUE. LUNGS ARE CLEAR IN UPPER, BUT PATIENT NOT TAKING DEEP BREATHS. ENCOURAGED IS AND PATIENT REFUSED. INSTURCTED TO TAKE DEEP BREATHS AND COUGH, WHICH SHE DID POORLY. 2+ EDEMA NOTED IN ALESSANDRA LOWER EXTREMITIES. PATIENT ON 2L NC, O2 SAT 94%. NO OTHER NEEDS AT THIS TIME. CALL LIGHT AND BEDSIDE TABLE IN REACH.
--- NOTE | 2018-07-16 00:07 | NUR ---
V/S AND I&O DONE AND RECORDED. RN LUIZ AND I CLEANED/CHANGED ATTEND AND GUADARRAMA CATH CARE DONE. BED SIDE TABLE AND CALL LIGHT WITHIN REACH.
--- NOTE | 2018-07-16 00:15 | NUR ---
PATIENT REPOSITIONED IN BED. TURNED TO RIGHT SIDE. WATER PROVIDED. CALL LIGHT IN REACH.
--- NOTE | 2018-07-16 03:45 | NUR ---
PATIENT MOANING. WHEN ASKED IF PATIENT IS IN PAIN SHE DENIES IT. REPOSTIONED FOR COMFORT.
--- NOTE | 2018-07-16 05:14 | NUR ---
PATIENT APPEARS TO BE SLEEPING SOUNDLY. RR 18. O2 SAT 96% ON 2L NC.
--- NOTE | 2018-07-16 06:12 | NUR ---
PATIENT SLEPT MOST OF THE SHIFT. CRYING OUT OCCATIONALLY. ORIENTED TO ALL EXCEPT THE DATE. TURN Q2H. MODERATED EDEMA ON ALESSANDRA LOWER EXTREMITIES. 2L NC. GUADARRAMA. URINE OUTPUT QS. ENCOURAGE ORAL INTAKE. PATIENT HAS NOT BEE OUT OF BED THIS SHIFT. UP TO CHAIR FOR MEALS DURING THE DAY. 2 PERSON MAX ASSIST OR ISABEL. BED ALARM.
--- NOTE | 2018-07-16 07:39 | NUR ---
RECIEVED BEDSIDE REPORT FROM DEBRA DEE. PT AWAKE IN BED, RT IN ROOM FOR TREATMENT. PT WHIMPERING, UNABLE TO SAY WHAT SHE NEEDS. GUADARRAMA IN PLACE, DRAINING YELLOW URINE, QS. PT REFUSED TO GET UP FOR WEIGHT. BED WEIGHT TAKEN. Q2 HOUR TURNS. PT DRINKS ICE WATER ALL NIGHT.
--- NOTE | 2018-07-16 08:31 | NUR ---
PATIENT SITTING UP IN BED. BREAKFAST WAS BROUGHT TO PATIENT BUT SHE INSISTED THAT WAS NOT WHAT SHE ORDERED AND WANTED TO CREAM OF WHEAT SO CREAM OF WHEAT WAS ORDERED. CALL LIGHT IN REACH. NO FURTHER NEEDS AT THIS TIME.
--- NOTE | 2018-07-16 09:46 | NUR ---
PT WHIMPERING ABOUT HER STOMACH HURTING. UNABLE TO RATE PAIN, STATES IT IS A "THROW UP PAIN". PRN ZOFRAN GIVEN FOR NAUSEA. PT STILL WHIMPERING. REMINDED PT TO RELAX AND DEEP BREATHE. PT ATE SMALL AMT OF BREAKFAST.
--- NOTE | 2018-07-16 10:04 | NUR ---
PATIENT IN BED RESTING. PATIENT IS MOANING AND COMPLAINING OF STOMACH ACHING AND FEELING LIKE SHE NEEDS AT VOMIT. RN NOTIFIED. CALL LIGHT IN REACH. NO FURTHER NEEDS AT THIS TIME.
--- NOTE | 2018-07-16 11:01 | NUR ---
PT SLEEPING, OBSERVED THROUGH DOOR. SHE APPERS COMFORTABLE AT THIS TIME. PT WAKES WITH THE OPEINING OF THE DOOR AND STARTS WHIMPERING WITH NO ABLITY TO STATE WHY OR WHAT IS BOTHERING HER. PRN TYLENOL AND PRN ZOFRAN GIVEN.
--- NOTE | 2018-07-16 12:51 | NUR ---
PT WHIMPERING UNABLE TO SAY WHY. O2 IS AT 100%.
--- NOTE | 2018-07-16 13:29 | NUR ---
PATIENT GIVEN BED BATH. NEW GOWN PROVIDED. CATH AND DARREN CARE DONE. FRESH WATER GIVEN. CALL LIGHT IN REACH. NO FURTHER NEEDS AT THIS TIME.
--- NOTE | 2018-07-16 17:59 | NUR ---
PATIENT IN BED RESTING WITH EYES CLOSED. FRESH WATER GIVEN. CALL LIGHT IN REACH. NO FURTHER NEEDS AT THIS TIME.
--- NOTE | 2018-07-16 18:22 | NUR ---
PT MUCH MORE TEARFUL AND ANXIOUS THIS SHIFT. WAS UNABLE TO VERBALIZE LOCATION OF PAIN OR TYPE OF PAIN. PRN TYLENOL GIVEN, WHICH WAS EFFECTIVE. PT GIVEN A ONE TIME DOSE OF ATIVAN, WHICH WAS EFFECTIVE. PT HAS CONCERNS ABOUT GOING HOME. CASE MANAGEMENT CONSULT IN PLACE. PT HAD EXTRA-LARGE BM. PT STATED HER BELLY FELT MUCH BETTER AFTER THAT. GUADARRAMA CATH STILL IN PLACE.
--- NOTE | 2018-07-16 19:15 | NUR ---
SHIFT REPORT RECEIVED. PATIENT RESTING IN BED WITH EYES CLOSED. APPEARS PEACEFUL. CALL LIGHT IN REACH. 02 SAT 95% ON 1.5L NC.
--- NOTE | 2018-07-16 21:45 | NUR ---
EVENING MEDS GIVEN PER ORDER. PATIENT IS DROWSEY AND MOANING OCCATIONALLY. FLACC SCORE 6/10. PATIENT UNABLE TO REPORT HER DISCOMFORT. REPOSITIONED PATIENT AND TURNED TO LEFT SIDE. APPEARS MORE COMFORTABLE. PATIENT IS ORIENTED TO ALL EXCEPT THE DATE, HOWEVER IT TAKES SIGNIFICANT TIME FOR HER TO ANSWER QUESTIONS. APPEARS IF SHE IS TIRED AND NOT WANTING TO BE ASSESSED, VERSES CONFUSED. LUNGS ARE CLEAR, O2 SAT 96% ON 1.5L NC. ABD IS SOFT, NONTENDER, BOWEL SOUNDS ACTIVE. GUADARRAMA IN PLACE, GUADARRAMA CARE DOWN BY JEANA BRIONES. PATIENT HAS RASH/REDNESS UNDER HER PANIS WHICH HAS IMPROVED. HOWEVER SOME DRY SCALING REDNESS NOTED ON HER THIGHS, BARRIER CREAM APPLIED TO THIS AREA. 2+ EDEMA NOTED IN ALESSANDRA LOWER EXTREMITIES. ELEVATED ON PILLOWS. PATIENT APPEARS COMFORTABLE. TV TURNED OFF. CALL LIGHT IN HAND.
--- NOTE | 2018-07-17 00:05 | NUR ---
PATIENT REPOSITIONED TO LEFT SIDE. SHE HAD BEEN MOANING LOUDLY BUT STATES "I DON'T KNOW" WHEN ASKED WHAT IS WRONG. PATIENT ABLE TO SETTLE DOWN AFTER BEING REPOSITIONED. CALL LIGHT IN REACH.
--- NOTE | 2018-07-17 03:18 | NUR ---
PATIENT CALLED TO REQUEST WARM BLANKE, WHICH WAS PROVIDED TO HER. SHE REPORTS BEING COMFORTABLE. CALL PASCUAL IN REACH. O2 SAT 96% ON 1L NC.
--- NOTE | 2018-07-17 05:31 | NUR ---
PATIENT SLEPT MOST OF THE SHIFT. CALLED APPROPRIATELY. REQUIRED FREQUENT POSITION CHANGES TO REDUCES DISCOMFORT. PATIENT WILL MOAN AND APPEAR UNCOMFORTABLE, BUT IS UNABLE TO DESCRIBE WHAT IS MAKING HER UNCOMFORTABLE. URINE OUTPUT QS, GUADARRAMA IN PLACE. NYSTATIN TO PANIS AND BARRIER CREAM TO RED AREAS ON THIGHS, BUTTOCKS. 2+ EDEMA IN ALESSANDRA LOWER EXTREMITIES, ELEVATED TOLERATED. PATIENT REFUSING TO GET OUT OF BED, MAX 2PA FOR TRANSFER OR ISABEL. TITRATED TO 1L NC.
--- NOTE | 2018-07-17 07:21 | NUR ---
RECIEVED BEDSIDE REPORT FROM DEBRA DEE. PT APPEARS TO BE SLEEPING, BREATHING TREATMENT GOING WITH RT. O2 TITRATED TO 1L, PT MAINTIANING SATS WELL. NO ADDITIONAL BM. PT REFUSED TO GET OUT OF BED THIS AM, STATES "EVERYTHING HURTS", UNABLE TO VERBALIZE EXACTLY WHERE OR WHAT HURTS. REPOSITIONING EFFECTIVE.
--- NOTE | 2018-07-17 09:21 | NUR ---
PATIENT GIVEN BEDBATH BY THIS CIVIL TECHNICIAN AND JEANA FLOWER. NEW GOWN AND DEPENDS. SHAMPOO CAP, DARREN CARE, AND CATH CARE DONE. PATIENT UP TO CHAIR, 2 PERSON ASSIST, FWW. ORAL CARE DONE. FRESH WATER GIVEN. CALL LIGHT IN REACH. NO FURTHER NEEDS AT THIS TIME.
--- NOTE | 2018-07-17 14:00 | NUR ---
PT STOOD FOR STANDING WEIGHT WITH MODERATE ASSISTANCE. STANDING WEIGHT OF 241.9LBS. PT REPORTS PAIN IS BETTER CONTROLLED. SHE HAS A FRIEND IN HER ROOM MAKING HER LAUGH AND GIGGLE. PT STATES SHE FEELS BETTER.
--- NOTE | 2018-07-17 14:00 | NUR ---
SPOKE WITH LENO HERNANDEZW WHO CONTACTED [facility] AND SPOKE WITH DAYWORKER TO FIND OUT IF PATIENTS DAUGHTER HAS COME INTO OFFICE WITH NEEDED FINANCIAL PAPERWORK. THEY STATE THEY HAD NO NEW CONTACT WAS MADE WITH DAUGHTER OR FAMILY RECENTLY. LENO WAS UNABLE TO REACH DAUGHTER, CHASIDY TODAY.
--- NOTE | 2018-07-17 14:03 | NUR ---
PATIENT UP TO BSC AND BACK TO CHAIR, 2 PERSON ASSIST FWW. FRESH WATER GIVEN. CALL LIGHT IN REACH. NO FURTHER NEEDS AT THIS TIME.
--- NOTE | 2018-07-17 17:00 | NUR ---
SPOKE WITH DR HAY WHO STATES PATIENT GAVE HIM THE PERMISSION TO SPEAK WITH HER BROHTER JASMIN DELGADO [phone]. DR HAY ASKED THAT I CALL HIM TOMORROW AND SEE IF HE CAN BE OF ANY HELP WITH PAPERWORK NEEDED FOR [employer].
--- NOTE | 2018-07-17 18:05 | NUR ---
PATIENT IN CHAIR WATCHING TC. FRESH WATER GIVEN. CALL LIGHT IN REACH. NO FURTHER NEEDS AT THIS TIME.
--- NOTE | 2018-07-17 19:15 | NUR ---
SHIFT REPORT RECEIVED. PATIENT RESTING IN BED. O2 SAT 98% ON 1L NC. PATIENT IS ALERT AND ORIENTED. DENIES DISCOMFORT. CALL LIGHT IN REACH.
--- NOTE | 2018-07-17 21:00 | NUR ---
PATIENT RESTING IN BED WATCHING TV. EVENING MEDS GIVEN PER ORDER. PATIENT DENIES PAIN. REQUEST ASSISTANCE TO THE BATHROOM. 1PA, PATIENT AMBULATED WELL WITH FWW. PATIENT RETURNED TO BED. NYSTATIN APPLIED TO PANIS AND BARRIER CREAM APPLIED TO RED AREAS. SKIN INTACT. 1+ EDEMA NOTED ON ALESSANDRA LOWER EXTREMITIES. ELEVATED LEGS. PATIENT TOLERATING 1L NC. CONTINUOUS PULSE OX IN PLACE. PATIENT DENIED ANY FURTHER NEEDS. CALL LIGHT IN REACH.
--- NOTE | 2018-07-17 23:00 | NUR ---
PT CALLED, NEEDED BATHROOM. ELEVATED HOB, PT ABLE TO GET SELF INTO A STANDING POSITION WITH WALKER WITH NO ASSISTANCE FROM THIS RN, AND AMBULATE INTO THE BATHROOM. CALL LIGHT WITHIN REACH FOR PT.
--- NOTE | 2018-07-18 00:30 | NUR ---
RT IN ROOM FOR NEB TREATMENT
--- NOTE | 2018-07-18 03:00 | NUR ---
PATIENT RESTING SOUNDLY IN BED. REPOSITIONED FOR COMFORT. DENIES PAIN OR TOILETING NEEDS. O2 SAT 95% ON 1L NC. CALL LIGHT IN REACH.
--- NOTE | 2018-07-18 05:00 | NUR ---
PATIENT REQUEST ASSISTANCE TO THE BATHROOM. GWENDOLYN HILLS ASSISTED PATIENT.
--- NOTE | 2018-07-18 05:53 | NUR ---
PATIENT SLEPT ON AND OFF THROUGHOUT THE NIGHT. TOLERATING 1L NC. SCHEDULED NEBS. LUNGS ARE CLEAR. 1+ EDEMA IN LOWER EXTREMITIES. 1PA W/FWW. ENCOURAGE POSITION CHANGES. DENIES PAIN OR NAUSEA THIS SHIFT. ADA DIET WITH ACCU CHECKS AND SSI. DAILY WT. ENCOURAGE PATIENT OUT OF BED. PT/OT
--- NOTE | 2018-07-18 07:38 | NUR ---
PATIENTS BLOOD SUGAR VERY LOW, RN NOTIFIED. GOT PATIENT ORANGE JUICE AND CRACKERS. RN IN ROOM.
--- NOTE | 2018-07-18 07:55 | NUR ---
PT FSBS FOUND TO BE 36. HOSPITALIST NOTIFIED. ORDER FOR 50ML D50 IV. IV LEAKING. ATTEMPTING NEW IV PLACEMENT NOW.
--- NOTE | 2018-07-18 08:10 | NUR ---
D50 PUSHED THROUGH LEFT WRIST 24G IV. PLACED BY IDRIS RICHARDSON.
--- NOTE | 2018-07-18 08:53 | NUR ---
PT UP TO BATHROOM TO URINATE. SBA FWW. UP IN RECLINER WITH LEGS ELEVATED AND EATING BREAKFAST NOW.
--- NOTE | 2018-07-18 09:23 | NUR ---
PATIENT IN CHAIR WATCHING TV. FRESH WATER GIVEN. ORAL CARE DONE. LINENS CHANGED. CALL LIGHT IN REACH. NO FURTHER NEEDS AT THIS TIME.
--- NOTE | 2018-07-18 10:45 | NUR ---
SPOKE WITH PATIENTS BROTHER JASMIN DELGADO FROM [facility] [phone]. DISCUSSED WITH HIM SITUATION THAT PATIENT WANTS TO GO TO ASSISTED LIVING AND ALL THAT HAS BEEN DONE TO SET THIS UP. DISCUSSED WITH HIM THAT [facility] HAS BEEN TRYING TO WORK WITH THE FAMILY ON FINANCIAL PAPERWORK BUT THAT IT HAS YET TO BE SUBMITTED. DISCUSSED THAT PATIENTS HASN'T BEEN ABLE TO FIND THIS AND THAT PATIENT WAS TOO SICK TO DEAL WITH IT. HE STATES HIS BROTHER [place] HAS DEMENTIA AND WON'T BE MUCH HELP. I DISCUSSED THAT I SPOKE WITH CHASIDY TUESDAY MORNING AND THAT SHE STATED SHE WOULD GO TO [facility], BUT OF YESTERDAY THEY HAD NOT SPOKEN WITH HER. HE STATES HE WILL LOOK INTO COMING UP AND HELPING THEM WITH WHAT THEY NEED TO DO. HE STATES CHASIDY IS "NOT VERY ACCOUNTABLE". HE WILL CONTACT PATIENT AND DIRECTLY AND SEE WHAT HELP HE CAN PROVIDE.
--- NOTE | 2018-07-18 11:18 | NUR ---
pt working with physical therapy now. ambulating in halls on 2L 02 via nj.
--- NOTE | 2018-07-18 12:11 | NUR ---
PT SITTING IN CHAIR, PIER RUNNER TAKING VS. SHE IS FEELING GOOD, SLEPT WELL. GOOD VISIT, EXENDED A BLESSING AND WILL FOLLOW NEEDED
--- NOTE | 2018-07-18 14:05 | NUR ---
RECEIVED A CALL FROM PATIENTS BROTHER JASMIN [phone] AND HIS [place] [phone]. THEY STATE THEY SPOKE WITH PATIENT WHO ASKED THEM TO HELP HER WITH GETTING TO ASSISTED LIVING. THEY SPOKE WITH HER JASKARAN WHO WAS UNABLE TO DISCUSS SPECIFIC PAPERWORK THAT HE COULD GATHER FOR [facility]. THEY STATE HE HAS PRETTY SEVERE DEMENTIA AND HAS EVEN GOTTEN LOST DRIVING ON SEVERAL OCCASIONS. THEY STATE HE DOES BEST AT HOME BUT GETS MORE CONFUSED WITH THE MORE THAT IS GOING ON. JASMIN STATES HE SPOKE WITH ANOTHER SISTER WHO STATES SHE THINKS A RELATIVE OF [employer] DOES SOME PAPERWORK FOR THEM, AND SHE SAYS HIS NAME IS SANDY BUT SHE DOESN'T KNOW MUCH MORE. THEY ARE UNFAMILIAR WITH THIS PERSON. THEY CANNOT COME UP TODAY DUE TO ROAD CONDITIONS BUT THEY WILL KEEP IN TOUCH WITH CHW RICK AND THEY WILL TRY TO FIND OUT MORE INFORMATION.
--- NOTE | 2018-07-18 14:30 | NUR ---
SPOKE WITH JASON YEUNG WHO IS HERE TO CHECK IN WITH PATIENT. SHE STATES THEY WILL SEE WHAT THEY CAN DO TO HELP PATIENT AND FAMILY WITH RESOURCES. SHE WILL SEE PATIENT IN ROOM.
--- NOTE | 2018-07-18 15:06 | NUR ---
pt up to bathroom with student nurse's assistance. patient having BMs and unable to make it to BSC in bathroom. attends changed by student nurses.
--- NOTE | 2018-07-18 17:43 | NUR ---
ACCU CHECK. MORNING FSBS 37. D50 50ML AMP GIVEN. NO LANTUS GIVEN THIS MORNING. REGLAN PRIOR TO MEALS SCHEDULED. NYSTATIN FOR PANUS. 1PA AND IN TO BATHROOM. SBA WHEN UP WITH FWW. BM TODAY. UNABLE TO MAKE IT TO BATHROOM AT TIMES. DAILY WEIGHT. PT/OT. 1-2L O2 CHRONIC. WORKING WITH CASE MANAGEMENT ON FINDING ASSISTANCE FOR SNF PLACEMENT.
--- NOTE | 2018-07-18 17:50 | NUR ---
PATIENT SITTING UP IN CHAIR WATCHING TV. CALL LIGHT IN REACH. NO FURTHER NEEDS AT THIS TIME.
--- NOTE | 2018-07-18 19:05 | NUR ---
SHIFT REPORT RECEIVED. PATIENT RESTING IN BED WATCHING TV. O2 98% ON 1L NC. PATIENT APPEARS COMFORTBALE. DENIES NEEDS. CALL [facility] IN REACH.
--- NOTE | 2018-07-18 21:30 | NUR ---
EVENING MEDICATION GIVEN PER ORDER. PATIENT IS AAOX4. DENIES PAIN. LUNGS ARE CLEAR, O2 98% ON 1L NC. ABD SOFT. NO NAUSEA. 1+ EDEMA NOTED IN ALESSANDRA LOWER EXTREMITIES. SKIN DRY, INTACT. REDNESS IN PANIS RESOLVED, SOME RED/RASH AREAS ON UPPER THIGHS, NYSTATIN AND BARRIER CREAM APPLIED ORDERED. PATIENT REPOSITIONED FOR COMFORT. FRESH ICE WATER PROVIDED. CALL LIGHT IN REACH.
--- NOTE | 2018-07-18 22:00 | NUR ---
PATIENT REQUEST ASSISTANCE TO THE BATHROOM. VIKASH RICHARDSON ASSISTED PATIENT.
--- NOTE | 2018-07-19 01:42 | NUR ---
1 PA TO THE BATHROOM USING WALKER.
--- NOTE | 2018-07-19 02:23 | NUR ---
PATIENT APPEARS TO BE SLEEPING SOUNDLY. RR 18. O2 SAT 98% ON 1L NC. CALL LIGHT IN REACH.
--- NOTE | 2018-07-19 03:15 | NUR ---
PATIENT RESTING IN BED. O2 SAT 98% ON 2L NC. PATIENT DENIES PAIN. ORIENTED X3. LUNGS ARE CLEAR. PATIENT DENIES NEEDS. CALL LIGHT IN REACH.
--- NOTE | 2018-07-19 06:05 | NUR ---
PATIENT SLEPT MOST OF THE SHIFT. ORIENTED X4. CALLED APPROPRIATELY. SBA W/FWW. 2L NC. SCHEDULED NEBS. DENIED PAIN. ACCU CHECKS PER ORDER WITH SSI. ADA DIET.
--- NOTE | 2018-07-19 07:52 | NUR ---
BEDSIDE REPORT RECEIVED FROM LUIZ RICHARDSON. PATIENT SLEEPING AND SITTING UP IN CHAIR. CALL LIGHT WITHIN REACH. LANTUS CHANGED TO 20 UNITS TODAY. DAILY WEIGHT DOCUMENTED BY VEGETABLE SCULLION. NO IV.
--- NOTE | 2018-07-19 08:00 | NUR ---
Pt recieved breakfast tray, 95% of her meal was eaten. Pt had no difficulty eating her meal. When talking to pt, questions answered approppriately. Pt oriented to person and place.
--- NOTE | 2018-07-19 10:10 | NUR ---
Pt stated she had difficulty breathing. Lung sounds auscultated. Lung sounds in the lower lobes are deminished bilaterally. Upper lung sounds are clear. Pt was asked if she felt that breathing difficulties were r/t anxiety? Pt replied, confirming her breathing was r/t anxiety. Pt fell right back asleep after converstion. Pt sitting up in chair, call light within reach.
--- NOTE | 2018-07-19 11:00 | NUR ---
Pt recieved Reglan. The pt was asked to verify name and . Pt has some difficulty speaking. Vital Signs were obtained. Vital signs WNL, call light placed with pt. Pt nurse aware of pt behavior, and varying levels of interaction with staff members.
--- NOTE | 2018-07-19 11:16 | NUR ---
PATIENT SITING UP IN CHAIR. STUDENT AND RN IN ROOM. STUDENT DID VITAL SIGNS AND I&O AND THIS ENGINEERING INSPECTION ASSISTANT CHARTED THEM. ICE WATER GIVEN. CALL LIGHT WITHIN REACH. NO OTHER NEEDS AT THIS TIME
--- NOTE | 2018-07-19 11:22 | NUR ---
PT SITTING UP IN RECLINER. DOZING OFTEN. O2 SATS MID 90s. FEELS SOB AT TIMES. ZOLOFT GIVEN WITH MORNING MEDS. LUNGS CLEAR IN UPPER LOBES AND DIM IN LOWER LOBES. HR AROUND 100BPM.
--- NOTE | 2018-07-19 12:13 | NUR ---
PATIENT SITING UP IN CHAIR. PATIENT WALKS TO BATHROOM USING A WALKER. ONE PERSON ASSISTING. HANDS AND FACE CLEANED. PATIENT BACKS TO CHAIR. CALL LIGHT WITHIN REACH. NO OTHER NEEDS AT THIS TIME
[2018-07-19] MEDS ORDERED: ELIQUIS2.5 MG PO (13:05)
[2018-07-19] MEDS ORDERED: METOPROLOL SUCC25 MG PO (13:06)
[2018-07-19] MEDS ORDERED: ELIQUIS2.5 MG (13:06)
[2018-07-19] MEDS ORDERED: ZOLOFT25 MG PO (13:07)
[2018-07-19] MEDS ORDERED: TORSEMIDE20 MG PO (13:09)
[2018-07-19] MEDS ORDERED: KLOR-CON 1010 MEQ PO (13:09)
[2018-07-19] MEDS ORDERED: INSULIN PEN NE1 EACH MISC (13:13)
[2018-07-19] MEDS ORDERED: LANTUS SOL100 UNIT/1 SUB-Q (13:13)
[2018-07-19] MEDS ORDERED: HUMALOG100 UNIT/2 SUB-Q (13:18)
[2018-07-19] MEDS ORDERED: CLOPIDOGREL75 MG PO ×2 (13:25→13:26)
--- NOTE | 2018-07-19 13:48 | NUR ---
MET WITH PT'S , PT IS SCHEDULED TO BE DC'D TODAY. HE FEELS PT IS REGRESSED SOME FROM YESTERDAY-EYE DROOPING AND PAIN INCREASED. SWITCHMANDEBRA LOPEZ SAID SHE WILL KEEP A CLOSE WATCH ON PT TODAY. HE SEEMED SATISFIED. WILL FOLLOW NEEDED
--- NOTE | 2018-07-19 14:22 | NUR ---
PT SITTING IN CHAIR, BY HER SIDE. SHE IS TO BE DC'D TODAY-I THINK SHE WOULD PREFER TO REMAIN HERE. GAVE ENCOURAGEMENT, PT SMILED, I EXTENDED A BLESSING. WILL FOLLOW NEEDED
[2018-07-19] MEDS ORDERED: OMEPRAZOLE20 MG PO (17:37)
--- NOTE | 2018-07-19 18:20 | NUR ---
PATIENT SITING UP IN BED. IN ROOM. VITAL SIGNS AND I&O WERE OBTAINED PRIOR TO DISCHARGE FROM THE UNIT.
--- NOTE | 2018-07-19 18:49 | NUR ---
PLEASE REFER TO DISCHARGE SUMMARY FOR DISCHARGE TASKS DONE TO ALLOW SMOOTHER TRANSITION TO HOME IN REGARDS TO MEDICATIONS SHE NEEDS TO TAKE. SCRIPTS NEEDED TO FILL AND PROVIDED EDUCATION ON INSULIN ADMINISTRATION AND HOW TO READ SLIDING SCALE. USED TEACH BACK/READ BACK METHOD WITH PATIENT. WORKED WELL.
--- NOTE | 2018-07-20 11:20 | NUR ---
CHW MET WITH PATIENT AT HER HOME RESIDENCE. PATIENT WAS IN AND OUT OF BREATH THE ENTIRE TIME OF THE HOME VISIT. PATIENT STATED SHE HAS BEEN OUT OF BREATH AND HAS A HARD TIME BREATHING SINCE SHE HAS BEEN HOME. SHE WAS USING HER OXYGEN AT THE TIME OF CONVERSATION. PATIENTS MEDICATIONS WERE ALL OVER THE HOUSE HER WAS LOOKING FOR ALL THE MEDICATIONS IN A COUPLE OF THE BEDROOMS/BATHROOMS. ONCE CHW REVIEWED ALL MEDICATIONS LISTED SEEMS THAT A LOT OF OLD MEDICATIONS ARE STILL IN THE HOME AND PATIENT USES OCCASIONALLY. CHW PUT ALL MEDICATION BOTTLES AND A MEDICATION PILL BOX THAT CHW BROUGHT INTO ONE AREA ON THE COUCH SO WHEN HOME HEALTH RN ARRIVES THEY CAN REVIEW ALL THE MEDICATIONS AND HELP PATIENT SET UP THE MEDICATION PILL BOX FOR A WEEK AT A TIME. CHW LET THE DISCHARGE PAPERWORK FROM THE RECENT HOSPITALIZATION FOR THE HOME HEALTH RN TO REVIEW. CHW PROVIDED A CALENDAR WITH THE DATE AND TIME OF THE NEXT PCP VISIT WITH DR HAY ON 07/25/18 @ 5:30PM. CHW AND PATIENT DISCUSSED MEALS ON WHEELS AND NOTIFIED LORIN PER PATIENT THAT PATIENT IS NOW BACK AT HOME AND WOULD LIKE MEALS ON WHEELS DELIVERED TO HER. CHW ASKED IF PATIENT HAS WEIGHED HERSELF TODAY AND SHE STATED SHE DID FIRST THING THIS MORNING AND WEIGHED 238 PDS. CHW WILL CONTACT JAIMIE AND OR BHASKAR TO SEE IF PATIENT IS ENROLLED IN THE PULMONARY REHAB PROGRAM AND OR HEART FAILURE PROGRAM. PATIENT WOULD BENEFIT FROM EITHER PROGRAM. CHW ASKED PATIENT ABOUT WHO PROVIDES MEALS AND SHE STATED HER CURRENTLY DOES AND THAT HE PREPARES THE MEALS FOR HER. PATIENT WAS NOT PART OF THE CONVERSATION HE LEFT AND WENT INTO ANOTHER ROOM WHILE I WAS VISITING. HE ONLY WOULD COME OUT IF PATIENT CALLED FOR HIS ASSISTANCE. CHW DISCUSSED THE FINANCIAL INFORMATION THAT [facility] NEEDED IN ORDER TO MOVE FORWARD WITH [facility] ASSISTANCE. PATIENT STATED SHE IS WAITING ON DAHIANA FROM [facility] TO GET HER FINANCIAL INFORMATION FROM HER TAX [employer] IN [facility]. CHW CONTACT DAHIANA AT [facility] AND DAHIANA IS GOING TO PRODUCTION ADMINISTRATOR AN RON TO THE TAX SERVICE SO SHE CAN GET THAT SIGNED AND WILL PROBABLY MEET WITH THE PATIENT TODAY 07/20/18 IF SHE HAS TIME TO. PATIENT STATED SHE HAS A GRANDSON WHO LIVES IN [facility] AND THAT HE IS OFF WORK ON THURSDAYS SO SHE WAS GOING TO CONTACT HIM TO SEE ABOUT HELPING AROUND THE HOUSE AND HELPING HER THROUGHOUT THE DAY. PATIENT STATED HER DAUGHTER WORKS A LOT BECAUSE SHE IS HEAD OF HOUSEHOLD SO SHE ISN'T AROUND MUCH TO HELP AROUND THE HOUSE AND OR ASSIST HER WITH THINGS SHE NEEDS. PATIENT DECLINED SENIOR CORE MAKER PROGRAM AND SENIOR PHONE LINE AT THIS TIME.
== END 2018-07-19 18:35 | disposition home health service (06) ==
LOC: ED 02:24 → MS 02:25
PROVIDERS: ADMIT Student in an Organized Health Care Education/Training Program
DX: N17.9 Acute kidney failure, unspecified (principal); N39.0 Urinary tract infection, site not specified; B96.89 Other specified bacterial agents as the cause of diseases classified elsewhere; J96.11 Chronic respiratory failure with hypoxia; I10 Essential (primary) hypertension; E03.9 Hypothyroidism, unspecified; E11.43 Type 2 diabetes mellitus with diabetic autonomic (poly)neuropathy; K31.84 Gastroparesis; I50.22 Chronic systolic (congestive) heart failure; I25.2 Old myocardial infarction; E66.9 Obesity, unspecified; I25.10 Atherosclerotic heart disease of native coronary artery without angina pectoris; M21.371 Foot drop, right foot; B37.2 Candidiasis of skin and nail; J45.909 Unspecified asthma, uncomplicated; I48.0 Paroxysmal atrial fibrillation; F39 Unspecified mood [affective] disorder; F41.9 Anxiety disorder, unspecified; Z88.5 Allergy status to narcotic agent; Z99.81 Dependence on supplemental oxygen; Z96.41 Presence of insulin pump (external) (internal); Z88.2 Allergy status to sulfonamides; Z79.02 Long term (current) use of antithrombotics/antiplatelets; Z79.51 Long term (current) use of inhaled steroids; Z79.899 Other long term (current) drug therapy; Z68.37 Body mass index [BMI] 37.0-37.9, adult
CPT/HCPCS: 36415; 51702; 71045; 80048; 80053; 81001; 82570; 83605; 83735; 83880; 84300; 84484; 85025; 87040; 87088; 87184; 93005; 93010; 94640; 94762; 96361; 96365; 96366; 96374; 96375; 97110; 97116; 97163; 97166; 97530; 97535; 99285-25; G0378; J0692; J0696; J1815; J7030; J7120

== ENCOUNTER 2018-07-24 20:49 | Emergency (ER) | payer MEDICARE, BC ==
[~2018-07-24] VITALS: Ht 170.2 cm; Wt 109.1 kg
[~2018-07-24 20:49] MED LIST changes: +ELIQUIS2.5 MG; +HUMALOG100 UNIT/2 SUB-Q; +INSULIN PEN NE1 EACH MISC; +LANTUS SOL100 UNIT/1 SUB-Q
--- OUTSIDE RECORDS SUMMARY | 2018-07-24 20:54 | XMS ---
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 Care History Medical/Surgical 06/26/2018 [facility] - Patient is currently established with [facility]. If patient is seen in the ED during business hours. Please contact CHWs at [facility]. Care Recommendation: This patient has had 5 [...] COUNT (12 MO.) 5 [facility] 5 [facility] TOTAL 10 NOTE: Visits indicate total known visits. ED/UCC VISIT TRACKING (12 MO.) 07/24/2018 20:50 [facility] [place] TYPE: Emergency COMPLAINT: - SHORTNESS OF BREATH 07/13/2018 02:24 [facility] [place] TYPE: Emergency COMPLAINT: - LOW BLOOD PRESSURE 06/24/2018 12:53 [facility] [place] TYPE: Emergency COMPLAINT: - SOB 05/29/2018 10:00 [facility] [place] TYPE: Emergency DIAGNOSES: - Acute posthemorrhagic anemia - Hyperkalemia - Epistaxis - Acute kidney failure, unspecified - Abnormal levels of other serum enzymes - nose bleed - Epistaxis 04/03/2018 13:33 [facility] [place] TYPE: Emergency DIAGNOSES: - Shortness of Breath - Fluid overload, unspecified - Chest Pain - Acute systolic (congestive) heart failure - Pleural effusion, not elsewhere classified 02/08/2018 12:04 [facility] [place] TYPE: Emergency DIAGNOSES: - Hyperglycemia, unspecified - Presence of coronary angioplasty implant and graft - Palpitations - Chest Pain - Unspecified systolic (congestive) heart failure - Atherosclerotic heart disease of [place] coronary artery without angina pectoris - Chronic atrial fibrillation - Anemia, unspecified - Dyspnea, unspecified - Pleural effusion, not elsewhere classified 01/19/2018 22:19 [facility] [place] TYPE: Emergency DIAGNOSES: - snf (current) use of insulin - Acute and chronic respiratory failure with hypoxia - Left ventricular failure, unspecified - Abnormal levels of other serum enzymes - Shortness of Breath - Heart failure, unspecified - Hypothyroidism, unspecified - Other specified diabetes mellitus with unspecified complications 01/03/2018 12:40 [facility] TYPE: Emergency 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 01/03/2018 11:10 [facility] TYPE: Emergency COMPLAINT: - CHEST PAIN DIAGNOSES: - Precordial pain - meterman (current) use of insulin - Allergy status to sulfonamides status - Other exterminator helper (current) drug therapy - Type 2 diabetes mellitus without complications - Allergy status to narcotic agent status - ST elevation (STEMI) myocardial infarction of unspecified site 08/06/2017 08:40 [facility] TYPE: Emergency COMPLAINT: - CHEST CONGESTION/COUGH/SORE THROAT INPATIENT VISIT TRACKING (12 MO.) 07/13/2018 02:25 [facility] [place] TYPE: Medical Surgical COMPLAINT: - ACUTE RENAL FAILURE DIAGNOSES: - Foot drop, right foot - Obesity, unspecified - Unspecified asthma, uncomplicated - Urinary tract infection, site not specified - Type 2 diabetes mellitus with diabetic autonomic (poly)neuropathy - Presence of insulin pump (external) (internal) - Acute kidney failure, unspecified - Hypothyroidism, unspecified - Body mass index (BMI) 37.0-37.9, adult - Weakness - Allergy status to narcotic agent status - Chronic respiratory failure with hypoxia - Allergy status to sulfonamides status - Other specified bacterial agents as the cause of diseases classified elsewhere - Other mcc (current) drug therapy - Candidiasis of skin and nail - Anxiety disorder, unspecified - Atherosclerotic heart disease of [place] coronary artery without angina pectoris - snf (current) use of inhaled steroids - Essential (primary) hypertension - snf (current) use of antithrombotics/antiplatelets - Chronic systolic (congestive) heart failure - Dependence on supplemental oxygen - Gastroparesis - Unspecified mood [affective] disorder - Paroxysmal atrial fibrillation - Old myocardial infarction 06/27/2018 11:04 [facility] [place] TYPE: Medical Surgical COMPLAINT: - CONGESTIVE HEART FAILURE DIAGNOSES: - Presence of cardiac pacemaker - Hyperlipidemia, unspecified - Dependence on supplemental oxygen - Unspecified mood [affective] disorder - Presence of cardiac pacemaker - meterman (current) use of antithrombotics/antiplatelets - snf (current) use of inhaled steroids - Type 2 diabetes mellitus with hyperglycemia - Dependence on supplemental oxygen - Old myocardial infarction - Type 2 diabetes mellitus with diabetic autonomic (poly)neuropathy - Type 2 diabetes mellitus with diabetic chronic kidney disease - Other mcc (current) drug therapy - Atherosclerotic heart disease of [place] coronary artery without angina pectoris - Acute [...] unspecified diabetic retinopathy without macular edema - meterman (current) use of inhaled steroids - meterman (current) use of insulin - Old myocardial infarction - Carrier of other specified bacterial diseases - Unspecified asthma, uncomplicated - Do not resuscitate - snf (current) use of insulin - Alkalosis - Chronic kidney disease, unspecified - Pain, unspecified - Acute and chronic respiratory failure with hypoxia - Alkalosis - Paroxysmal atrial fibrillation - Presence of coronary angioplasty implant and graft - Other exterminator helper (current) drug therapy - Paroxysmal atrial fibrillation - Allergy status to sulfonamides status - Pain, unspecified - Ischemic cardiomyopathy - Chronic kidney disease, unspecified - Unspecified asthma, uncomplicated - Hyperlipidemia, unspecified - Carrier of other specified bacterial diseases - Patient's other noncompliance with medication regimen - snf (current) use of antithrombotics/antiplatelets - Presence of coronary angioplasty implant and graft - Allergy status to narcotic agent status - Allergy status to narcotic agent status - Atherosclerotic heart disease of [place] coronary artery without angina pectoris - Anxiety disorder, unspecified - Type 2 diabetes mellitus with diabetic chronic kidney disease - Allergy status to sulfonamides status - Gastroparesis - Acute on chronic systolic (congestive) heart failure 05/29/2018 10:00 [facility] [place] TYPE: Medical Surgical DIAGNOSES: - Hyperkalemia - Acute posthemorrhagic anemia - Epistaxis - Acute cystitis with hematuria - meterman (current) use of insulin - Acute respiratory failure with hypoxia - Type 2 diabetes mellitus with unspecified complications - Abnormal levels of other serum enzymes - Chronic systolic (congestive) heart failure - Atherosclerotic heart disease of [place] coronary artery without angina pectoris - Encephalopathy, unspecified - Acute kidney failure, unspecified [facility] DIAGNOSES: - Chronic atrial fibrillation - Encounter for palliative care - Atherosclerotic heart disease of [place] coronary artery without angina pectoris - Unspecified systolic (congestive) heart failure - Type 2 diabetes mellitus with hyperglycemia - Resistance to multiple antibiotics - Hypothyroidism, unspecified - snf (current) use of insulin - Presence of [...] unspecified - Anxiety disorder, unspecified 01/19/2018 22[facility] DIAGNOSES: - Atherosclerotic heart disease of [place] coronary artery with unspecified angina pectoris - Heart failure, unspecified - Infection and inflammatory reaction due to indwelling urethral catheter, initial encounter - Left ventricular failure, unspecified - Infection and inflammatory reaction due to indwelling urethral catheter, initial encounter ([facility]) - Abnormal levels of other serum enzymes - Acute and chronic respiratory failure with hypoxia - Urinary tract infection, site not specified - Other specified diabetes mellitus with unspecified complications - snf (current) use of insulin - Hypothyroidism, unspecified [facility]07[facility]2018 [facility] [place] [facility]: General [facility] DIAGNOSES: - Type 2 diabetes mellitus with unspecified complications - meterman (current) use of insulin - Acute kidney failure, unspecified - Fluid overload, unspecified - Cardiogenic shock - S/P CARDIAC STENTS AFTER STEMI - Pericardial effusion (noninflammatory) - CARDIOGENIC SHOCK - Hypo-osmolality and hyponatremia - Paroxysmal atrial fibrillation - Pneumonitis due to inhalation of food and vomit - ST elevation (STEMI) myocardial infarction involving left main coronary artery [facility]2018 [facility] DIAGNOSES: - ST elevation (STEMI) myocardial infarction involving left anterior descending coronary artery - 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
--- NOTE | 2018-07-25 06:22 | EKG ---
[facility] [address] [facility] [place] [address] Signed Normal sinus rhythm Septal infarct (cited on or before 13-JUL-2018) Abnormal ECG When compared with ECG of 13-JUL-2018 15:22, Questionable change in initial forces of Septal leads Nonspecific T wave abnormality no longer evident in Anterior leads Confirmed by SHAHID GALINDO MD ([id number]) on 07/25/2018 6:22:34 AM Electronically Signed By: SHAHID GALINDO MD 07/25/18 0622 PATIENT NAME: NILTON GAVIN MARIO Electrocardiogram DATE OF : 50 PHYSICIAN: SHAHID GALINDO MD REPORT #: [id number] REPORT IS CONFIDENTIAL AND NOT TO BE RELEASED WITHOUT AUTHORIZATION
== END 2018-07-25 00:10 | disposition home or self-care (01) ==
LOC: ED 20:49
DX: I11.0 Hypertensive heart disease with heart failure (principal); I50.9 Heart failure, unspecified; E11.9 Type 2 diabetes mellitus without complications; E03.9 Hypothyroidism, unspecified; Z90.710 Acquired absence of both cervix and uterus; Z88.2 Allergy status to sulfonamides; Z88.5 Allergy status to narcotic agent; Z79.4 Long term (current) use of insulin; Z79.899 Other long term (current) drug therapy
CPT/HCPCS: 71045; 80053; 83735; 83880; 84484; 85025; 93005; 93010; 96374; 99285-25

== ENCOUNTER 2018-07-31 22:13 | Emergency (ER) | payer MEDICARE, BC ==
[~2018-07-31] VITALS: Ht 170.2 cm; Wt 102.1 kg
--- OUTSIDE RECORDS SUMMARY | 2018-07-31 22:18 | XMS ---
PreManage Notification: NILTON GAVIN Security Learning Specialist Events No recent Security Events currently on file CRITERIA MET - 6 ED Visits in 6 Months [facility] - 2 Visits in 30 Days CARE PROVIDERS [facility] Internal Medicine 06/26/2018-Kathleen WATSON PHONE: [phone] Jhony Salgado MD Primary Care Current PHONE: Unknown orsandy Case or Maid Cleaning Cooking Current PHONE: Unknown Burak SALGADO Current PHONE: Unknown José Miguel has no Care Guidelines for this patient. Care History Medical/Surgical 06/26/2018 [facility] - Patient is currently established with [facility]. If patient is seen in the ED during business hours. Please contact CHWs at [facility]. Care Recommendation: This patient has had [...] COUNT (12 MO.) 5 [facility] 6 [facility]. TOTAL 11 NOTE: Visits indicate total known visits. ED/UCC VISIT TRACKING (12 MO.) 07/31/2018 22:13 [facility] [place] TYPE: Emergency COMPLAINT: - SHORTNESS OF BREATH 07/24/2018 20:50 [facility] [place] TYPE: Emergency COMPLAINT: - SHORTNESS OF BREATH DIAGNOSES: - Heart failure, unspecified - exterminator (current) use of insulin - Hypothyroidism, unspecified - Shortness of breath - Allergy status to sulfonamides status - Hypertensive heart disease with heart failure - Allergy status to narcotic agent status - Other fci (current) drug therapy - Acquired absence of both cervix and uterus - Type 2 diabetes mellitus without complications 07/13/2018 02:24 [facility] [place] TYPE: Emergency COMPLAINT: - LOW BLOOD PRESSURE 06/24/2018 12:53 [facility] [place] TYPE: Emergency COMPLAINT: - SOB 05/29/2018 10:00 [facility] [place] TYPE: Emergency DIAGNOSES: - Acute posthemorrhagic anemia - Hyperkalemia - Epistaxis - Acute kidney failure, unspecified - Abnormal levels of other serum enzymes - nose bleed - Epistaxis 04/03/2018 13:33 [facility] [place] TYPE: Emergency DIAGNOSES: - Shortness of Breath - Fluid overload, unspecified - Chest Pain - Acute systolic (congestive) heart failure - Pleural effusion, not elsewhere classified 02/08/2018 12:04 [facility] [place] TYPE: Emergency DIAGNOSES: - Hyperglycemia, unspecified - Presence of coronary angioplasty implant and graft - Palpitations - Chest Pain - Unspecified systolic (congestive) heart failure - Atherosclerotic heart disease of [place] coronary artery without angina pectoris - Chronic atrial fibrillation - Anemia, unspecified - Dyspnea, unspecified - Pleural effusion, not elsewhere classified 01/19/2018 [facility]:[address] 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 01/03/2018 11:10 [facility] TYPE: Emergency COMPLAINT: - CHEST PAIN DIAGNOSES: - Precordial pain - [facility] (current) use of insulin - Allergy status to sulfonamides status - Other fci (current) drug therapy - Type 2 diabetes [...] cause of diseases classified elsewhere - Other fci (current) drug therapy - Candidiasis of skin and nail - Anxiety disorder, unspecified - Atherosclerotic heart disease of [place] coronary artery without angina pectoris - [facility] (current) use of inhaled steroids - Essential (primary) hypertension - [facility] (current) use of antithrombotics/antiplatelets - Chronic systolic [...] disorder - Presence of cardiac pacemaker - [facility] (current) use of antithrombotics/antiplatelets - [facility] (current) use of inhaled steroids - Type 2 diabetes mellitus with hyperglycemia - Dependence on supplemental oxygen - Old myocardial infarction - Type 2 diabetes mellitus with diabetic autonomic (poly)neuropathy - Type 2 diabetes mellitus with diabetic chronic kidney disease - Other termite inspector (current) drug therapy - Atherosclerotic heart disease of [place] coronary artery without angina pectoris - Acute [...] unspecified diabetic retinopathy without macular edema - [facility] (current) use of inhaled steroids - exterminator (current) use of insulin - Old myocardial infarction - Carrier of other specified bacterial diseases - Unspecified asthma, uncomplicated - Do not resuscitate - exterminator (current) use of insulin - Alkalosis - [...] Patient's other noncompliance with medication regimen - exterminator (current) use of antithrombotics/antiplatelets - Presence of coronary angioplasty implant and graft - Allergy status to narcotic agent status - Allergy status to narcotic agent status - Atherosclerotic heart disease of [place] coronary artery without angina pectoris - Anxiety disorder, unspecified - Type 2 diabetes mellitus with diabetic chronic kidney disease - Allergy status to sulfonamides status - Gastroparesis - Acute on chronic systolic (congestive) heart failure 05/29/2018 [facility] [facility] [address] DIAGNOSES: - Hyperkalemia - Acute posthemorrhagic anemia - Epistaxis - Acute cystitis with hematuria - [facility] (current) use of insulin - Acute respiratory failure with hypoxia - Type 2 diabetes mellitus with unspecified complications - Abnormal levels of other serum enzymes - Chronic systolic (congestive) heart failure - Atherosclerotic heart disease of [place] coronary artery without angina pectoris - Encephalopathy, unspecified - Acute kidney failure, unspecified 02/08/2018 [facility]:[address] [facility] DIAGNOSES: - Chronic atrial fibrillation - Encounter for palliative care - Atherosclerotic heart disease of [place] coronary artery without angina pectoris - Unspecified systolic (congestive) heart failure - Type 2 diabetes mellitus with hyperglycemia - Resistance to multiple antibiotics - Hypothyroidism, unspecified - [facility] (current) use of insulin - Presence of [...] unspecified - Anxiety disorder, unspecified 01/19/2018 22:[address] [facility] DIAGNOSES: - Atherosclerotic heart disease of [place] coronary artery with unspecified angina pectoris - Heart failure, unspecified - Infection and inflammatory reaction due to indwelling urethral catheter, initial encounter - Left ventricular failure, unspecified - Infection and inflammatory reaction due to indwelling urethral catheter, initial encounter ([facility] - Abnormal levels of other serum enzymes - Acute and chronic respiratory failure with hypoxia - Urinary tract infection, site not specified - Other specified diabetes mellitus with unspecified complications - [facility] (current) use of insulin - Hypothyroidism, unspecified 01/07/2018 [facility] [place] [facility] General [facility] DIAGNOSES: - Type 2 diabetes mellitus with unspecified complications - exterminator (current) use of insulin - Acute kidney failure, unspecified - Fluid overload, unspecified - Cardiogenic shock - S/P CARDIAC STENTS AFTER STEMI - Pericardial effusion (noninflammatory) - CARDIOGENIC SHOCK - Hypo-osmolality and hyponatremia - Paroxysmal atrial fibrillation - Pneumonitis due to inhalation of food and vomit - ST elevation (STEMI) myocardial infarction involving left main coronary artery 01/03/2018 12:[address] [facility] DIAGNOSES: - ST elevation (STEMI) myocardial infarction involving left anterior descending coronary artery - bottle label inspector - Type 1 diabetes mellitus with hyperglycemia - Atherosclerotic heart disease of [place] coronary artery with unspecified angina pectoris - Type 1 diabetes mellitus with other specified complication - Acute kidney failure with tubular necrosis [email or web address]
--- NOTE | 2018-08-01 23:18 | EKG ---
[facility] [address] [place] [address] Signed Sinus tachycardia Nonspecific T wave abnormality Abnormal ECG When compared with ECG of 24-JUL-2018 21:17, Criteria for Septal infarct are no longer present Confirmed by DORY HAY MD ([id number]) on 08/01/2018 11:18:19 PM Electronically Signed By: DORY HAY MD 08/01/18 2318 PATIENT NAME: ROMAINENILTON MARTIN Electrocardiogram DATE OF : 50 PHYSICIAN: DORY HAY MD REPORT #: [id number] REPORT IS CONFIDENTIAL AND NOT TO BE RELEASED WITHOUT AUTHORIZATION
[2018-08-02] MEDS ORDERED: OMEPRAZOLE20 MG PO (15:23)
== END 2018-08-01 01:40 | disposition home or self-care (01) ==
LOC: ED 22:13
DX: J44.1 Chronic obstructive pulmonary disease with (acute) exacerbation (principal); E11.9 Type 2 diabetes mellitus without complications; E03.9 Hypothyroidism, unspecified; I11.0 Hypertensive heart disease with heart failure; I50.9 Heart failure, unspecified; I25.2 Old myocardial infarction; Z90.710 Acquired absence of both cervix and uterus; Z88.2 Allergy status to sulfonamides; Z88.5 Allergy status to narcotic agent; Z79.899 Other long term (current) drug therapy; Z79.4 Long term (current) use of insulin
CPT/HCPCS: 36415; 71045; 80053; 83735; 83880; 84484; 85025; 93005; 93010; 99285-25

== ENCOUNTER 2018-08-02 10:22 | Emergency (ER) | payer MEDICARE, BC ==
[~2018-08-02] VITALS: Ht 170.2 cm; Wt 102.1 kg
--- OUTSIDE RECORDS SUMMARY | 2018-08-02 10:26 | XMS ---
PreManage Notification: NILTON GAVIN Security Web Operations Specialist Events No recent Security Events currently on file CRITERIA MET - 6 ED Visits in 6 Months [facility] - 2 Visits in 30 Days CARE PROVIDERS [facility] Internal Medicine 06/26/2018-Kathleen WATSON PHONE: [phone] Jhony Salgado MD Primary Care Current PHONE: Unknown orsandy Case or Hammer Fitter Current PHONE: Unknown Burak SALGADO Current PHONE: Unknown José Miguel has no Care Guidelines for this patient. Care History Medical/Surgical 06/26/2018 [facility] - Patient is currently established with [facility]. If patient is seen in the ED during business hours. Please contact [facility] at [facility]. Care Recommendation: This patient has had 5 [...] COUNT (12 MO.) 5 [facility] 7 [facility] TOTAL 12 NOTE: Visits indicate total known visits. ED/UCC VISIT TRACKING (12 MO.) 08/02/2018 10:22 [facility] [place] TYPE: Emergency COMPLAINT: - SOB 07/31/2018 22:13 [facility] [place] TYPE: Emergency COMPLAINT: - SHORTNESS OF BREATH 07/24/2018 20:50 [facility] [place] TYPE: Emergency COMPLAINT: - SHORTNESS OF BREATH DIAGNOSES: - Heart failure, unspecified - lobsterman (current) use of insulin - Hypothyroidism, unspecified - Shortness of breath - Allergy status to sulfonamides status - Hypertensive heart disease with heart failure - Allergy status to narcotic agent status - Other longterm (current) drug therapy - Acquired absence of both cervix and uterus - Type 2 diabetes mellitus without complications 07/13/2018 02:24 [facility] [place] TYPE: Emergency COMPLAINT: - LOW BLOOD PRESSURE 06/24/2018 12:[address] [facility] [place] TYPE: Emergency COMPLAINT: - SOB 05/29/2018 10:00 [facility] TYPE: Emergency DIAGNOSES: - Acute posthemorrhagic anemia - Hyperkalemia - Epistaxis - Acute kidney failure, unspecified - Abnormal levels of other serum enzymes - nose bleed - Epistaxis 04/03/2018 13:33 [facility] TYPE: Emergency DIAGNOSES: - Shortness of Breath - Fluid overload, unspecified - Chest Pain - Acute systolic (congestive) heart failure - Pleural effusion, not elsewhere classified 02/08/2018 12:04 [facility] [place] TYPE: Emergency DIAGNOSES: - Hyperglycemia, unspecified - Presence of coronary angioplasty implant and graft - Palpitations - Chest Pain - Unspecified systolic (congestive) heart failure - Atherosclerotic heart disease of [place] coronary artery without angina pectoris - Chronic atrial fibrillation - Anemia, unspecified - Dyspnea, unspecified - Pleural effusion, not elsewhere classified 01/19/2018 22:19 [facility] [place] TYPE: Emergency DIAGNOSES: - correction (current) use of insulin - Acute and chronic respiratory failure with hypoxia - Left ventricular failure, unspecified - Abnormal levels of other serum enzymes - Shortness of Breath - Heart failure, unspecified - Hypothyroidism, unspecified - Other specified diabetes mellitus with unspecified complications 01/03/2018 12:40 [facility] [place] TYPE: Emergency 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 01/03/2018 11:10 [facility] [place] TYPE: Emergency COMPLAINT: - CHEST PAIN DIAGNOSES: - Precordial pain - correction (current) use of insulin - Allergy status to sulfonamides status - Other longterm (current) drug therapy - Type 2 diabetes [...] cause of diseases classified elsewhere - Other longterm (current) drug therapy - Candidiasis of skin and nail - Anxiety disorder, unspecified - Atherosclerotic heart disease of [place] coronary artery without angina pectoris - correction (current) use of inhaled steroids - Essential (primary) hypertension - lobsterman (current) use of antithrombotics/antiplatelets - Chronic systolic [...] disorder - Presence of cardiac pacemaker - lobsterman (current) use of antithrombotics/antiplatelets - correction (current) use of inhaled steroids - Type 2 diabetes mellitus with hyperglycemia - Dependence on supplemental oxygen - Old myocardial infarction - Type 2 diabetes mellitus with diabetic autonomic (poly)neuropathy - Type 2 diabetes mellitus with diabetic chronic kidney disease - Other longterm (current) drug therapy - Atherosclerotic heart disease of [place] coronary artery without angina pectoris - Acute [...] unspecified diabetic retinopathy without macular edema - correction (current) use of inhaled steroids - lobsterman (current) use of insulin - Old myocardial infarction - Carrier of other specified bacterial diseases - Unspecified asthma, uncomplicated - Do not resuscitate - lobsterman (current) use of insulin - Alkalosis - Chronic kidney disease, unspecified - Pain, unspecified - Acute and chronic respiratory failure with hypoxia - Alkalosis - Paroxysmal atrial fibrillation - Presence of coronary angioplasty implant and graft - Other termite control technician (current) drug therapy - Paroxysmal atrial fibrillation - Allergy status to sulfonamides status - Pain, unspecified - Ischemic cardiomyopathy - Chronic kidney disease, unspecified - Unspecified asthma, uncomplicated - Hyperlipidemia, unspecified - Carrier of other specified bacterial diseases - Patient's other noncompliance with medication regimen - correction (current) use of antithrombotics/antiplatelets - Presence of coronary angioplasty implant and graft - Allergy status to narcotic agent status - Allergy status to narcotic agent status - Atherosclerotic heart disease of [place] coronary artery without angina pectoris - Anxiety disorder, unspecified - Type 2 diabetes mellitus with diabetic chronic kidney disease - Allergy status to sulfonamides status - Gastroparesis - Acute on chronic systolic (congestive) heart failure 05/29/2018 10:00 [facility] TYPE: Medical Surgical DIAGNOSES: - Hyperkalemia - Acute posthemorrhagic anemia - Epistaxis - Acute cystitis with hematuria - correction (current) use of insulin - Acute respiratory failure with hypoxia - Type 2 diabetes mellitus with unspecified complications - Abnormal levels of other serum enzymes - Chronic systolic (congestive) heart failure - Atherosclerotic heart disease of [place] coronary artery without angina pectoris - Encephalopathy, unspecified - Acute kidney failure, unspecified 02/08/2018 12:04 [facility] TYPE: Medical Surgical DIAGNOSES: - Chronic atrial fibrillation - Encounter for palliative care - Atherosclerotic heart disease of [place] coronary artery without angina pectoris - Unspecified systolic (congestive) heart failure - Type 2 diabetes mellitus with hyperglycemia - Resistance to multiple antibiotics - Hypothyroidism, unspecified - lobsterman (current) use of insulin - Presence of [...] unspecified - Anxiety disorder, unspecified 01/19/2018 22:19 [facility] TYPE: Medical [facility] DIAGNOSES: - Atherosclerotic heart disease of [place] coronary artery with unspecified angina pectoris - [...] specified diabetes mellitus with unspecified complications - correction (current) use of insulin - Hypothyroidism, unspecified [facility]07[facility]2018 [facility] DIAGNOSES: - Type 2 diabetes mellitus with unspecified complications - correction (current) use of insulin - Acute kidney failure, unspecified - Fluid overload, unspecified - Cardiogenic shock - S/P CARDIAC STENTS AFTER STEMI - Pericardial effusion (noninflammatory) - CARDIOGENIC SHOCK - Hypo-osmolality and hyponatremia - Paroxysmal atrial fibrillation - Pneumonitis due to inhalation of food and vomit - ST elevation (STEMI) myocardial infarction involving left main coronary artery 01/03/2018 12:40 [facility] TYPE: Intensive Care DIAGNOSES: - ST elevation (STEMI) myocardial infarction involving left anterior descending coronary artery - 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
[2018-08-02] MEDS ORDERED: OMEPRAZOLE20 MG PO (15:23)
--- NOTE | 2018-08-02 23:00 | EKG ---
[facility] [address] [place] [address] Signed Normal sinus rhythm Septal infarct , age undetermined Prolonged QT Abnormal ECG No previous ECGs available Confirmed by DORY HAY MD ([id number]) on 08/02/2018 11:00:33 PM Electronically Signed By: DORY HAY MD 08/02/180 PATIENT NAME: NILTON GAVIN Electrocardiogram DATE OF : 50 PHYSICIAN: DORY HAY MD REPORT #: [id number] REPORT IS CONFIDENTIAL AND NOT TO BE RELEASED WITHOUT AUTHORIZATION
== END 2018-08-02 15:35 | disposition home or self-care (01) ==
LOC: ED 10:22
DX: R07.9 Chest pain, unspecified (principal); E11.9 Type 2 diabetes mellitus without complications; E03.9 Hypothyroidism, unspecified; I10 Essential (primary) hypertension; I25.2 Old myocardial infarction; J44.9 Chronic obstructive pulmonary disease, unspecified; Z88.2 Allergy status to sulfonamides; Z88.5 Allergy status to narcotic agent; Z79.899 Other long term (current) drug therapy; Z79.4 Long term (current) use of insulin
CPT/HCPCS: 36415; 71045; 80053; 81001; 83690; 84484; 85025; 85610; 93005; 93010; 96374; 96375; 99285-25; J1815; J2405